=== PATIENT | female | born 1955 ===

== ENCOUNTER 2020-01-27 22:27 | Emergency (ER) | payer OTHER ==
[2020-01-27 22:36] VITALS: TEMP 98.2
--- NOTE | 2020-01-27 22:52 | ED ---
General Adult HPI - General Chief complaint: Recheck/Abnormal Lab/Rx Stated complaint: Back Pain Source: family Mode of arrival: ambulatory Limitations: altered mental status - History of Present Illness Initial comments: Shelby is a pleasant 64-year-old female who presents the ER today with a multitude of complaints. Patient moved to [place] on Tuesday from [place]. She has no medical care here in the state. She has no medical insurance which is delayed her son's ability to set her up with a primary care physician. Son reports that she had her gallbladder removed and a hospital in [place] in April and at that time was told she had high blood pressure and diabetes. She is not on any medications. He states that since moving she's been experiencing some abdominal pain and has not had a bowel movement since Tuesday. She states this is cause some abdominal and back pain. Pain is in her low back. She has no associated urinary retention or incontinence. No pain weakness numbness or tingling in the lower extremities. No difficulty walking. No fevers. On also expresses concern over the patient having memory problems which seemed to be worsening over the past year, and is concerned because she's been told she is diabetic but is not on medications. Son states he needs to get everything straightened up and set up for her. - Related Data Previous Rx's Medication Instructions Recorded Polyethylene Glycol 3350 [Miralax] 17 gm PO DAILY #527 gm 01/28/20 Sennosides-Docusate Sodium 1 tab PO DAILY #28 tablet 01/28/20 [Senokot-S] Allergies Allergy/AdvReac Type Severity Reaction Status Date / Time No Known Allergies Allergy Verified 01/27/20 22:36 Review of Systems ROS Statement: Those systems with pertinent positive or pertinent negative responses have been documented in the HPI. ROS Other: All systems not noted in ROS Statement are negative. Past Medical History Past Medical History: Diabetes Mellitus, Hypertension History of Any Multi-Drug Resistant Organisms: None Reported Past Surgical History: Cholecystectomy Past Psychological History: No Psychological Hx Reported Smoking Status: Never smoker Past Alcohol Use History: Occasional Past Drug Use History: None Reported General Exam - General Exam Comments Initial Comments: Physical Exam GENERAL: Patient is well-developed and well-nourished. Patient is nontoxic and well- hydrated and is in no distress. HENT: Normocephalic, Atraumatic. EYES: PERRL, EOMI PULMONARY: Unlabored respirations. No audible rales rhonchi or wheezing was noted. CARDIOVASCULAR: There is a regular rate and rhythm without any murmurs gallops or rubs. ABDOMEN: Soft and nontender with normal bowel sounds. SKIN: Skin is clear with no lesions or rashes and otherwise unremarkable. : Deferred NEUROLOGIC: Patient is alert and oriented x3. Moving all extremities spontaneously Normal strength bilateral lower extremities Normal 2+ patellar reflexes bilaterally Normal gait MUSCULOSKELETAL: Normal extremities with adequate strength and full range of motion. No lower extremity swelling or edema. No calf tenderness. No tenderness to palpation of back PSYCHIATRIC: Normal psychiatric evaluation. Limitations: altered mental status Course Vital Signs 01/27/20 01/28/20 01/28/20 22:30 01:00 03:32 Temperature 98.2 F Pulse Rate 68 56 L 78 Respiratory 16 17 18 Rate Blood Pressure 147/79 134/66 140/70 O2 Sat by Pulse 98 100 98 Oximetry Medical Decision Making - Medical Decision Making The patient was seen and evaluated history is obtained from the patient and son at bedside 64-year-old female who has not had a bowel movement in 7-8 days presenting with abdominal pain that radiates to her back Physical exam is relatively benign, patient has no signs or symptoms of cauda equina no significant back pain or abnormalities Labs and computed tomography scan were obtained labs are relatively unremarkable despite being told she is diabetic the patient's blood sugar is only in the 120s on no medications Computed tomography scan does reveal significant fecal burden, patient will be discharged home on MiraLAX and stool softeners advised to increase fluids and fiber in her diet Patient to return to ER for any worsening - Lab Data Result diagrams: 01/27/20 23:27 01/27/20 23:27 Lab Results 01/27/20 01/27/20 01/27/20 Range/Units 22:52 23:27 23:27 WBC 6.7 (3.8-10.6) k/uL RBC 4.47 (3.80-5.40) m/uL Hgb 12.9 (11.4-16.0) gm/dL Hct 39.0 (34.0-46.0) % MCV 87.3 (80.0-100.0) fL MCH 29.0 (25.0-35.0) pg MCHC 33.2 (31.0-37.0) g/dL RDW 13.3 (11.5-15.5) % Plt Count 259 (150-450) k/uL Neutrophils % 56 % Lymphocytes % 34 % Monocytes % 5 % Eosinophils % 2 % Basophils % 1 % Neutrophils # 3.8 (1.3-7.7) k/uL Lymphocytes # 2.3 (1.0-4.8) k/uL Monocytes # 0.3 (0-1.0) k/uL Eosinophils # 0.1 (0-0.7) k/uL Basophils # 0.1 (0-0.2) k/uL Sodium (137-145) mmol/L Potassium (3.5-5.1) mmol/L Chloride (98-107) mmol/L Carbon Dioxide (22-30) mmol/L Anion Gap mmol/L BUN (7-17) mg/dL Creatinine (0.52-1.04) mg/dL Est GFR (CKD-EPI)AfAm (>60 ml/min/1.73 sqM) Est GFR (CKD-EPI)NonAf (>60 ml/min/1.73 sqM) Glucose (74-99) mg/dL POC Glucose (mg/dL) 120 H (75-99) mg/dL POC Glu Sagger Preparer ID Aniyah Mims Calcium (8.4-10.2) mg/dL Total Bilirubin (0.2-1.3) mg/dL AST (14-36) U/L ALT (4-34) U/L Alkaline Phosphatase (38-126) U/L Total Protein (6.3-8.2) g/dL Albumin (3.5-5.0) g/dL Amylase (30-110) U/L Lipase (23-300) U/L Urine Color Light Yellow Urine Appearance Clear (Clear) Urine pH 5.0 (5.0-8.0) Ur Specific [place] 1.013 (1.001-1.035) Urine Protein Negative (Negative) Urine Glucose (UA) Negative (Negative) Urine Ketones Negative (Negative) Urine Blood Negative (Negative) Urine Nitrite Negative (Negative) Urine Bilirubin Negative (Negative) Urine Urobilinogen <2.0 (<2.0) mg/dL Ur Leukocyte Esterase Large H (Negative) Urine RBC 1 (0-5) /hpf Urine WBC 2 (0-5) /hpf Ur Squamous Epith Cells 1 (0-4) /hpf Urine Mucus Rare H (None) /hpf 01/27/20 Range/Units 23:27 WBC (3.8-10.6) k/uL RBC (3.80-5.40) m/uL Hgb (11.4-16.0) gm/dL Hct (34.0-46.0) % MCV (80.0-100.0) fL MCH (25.0-35.0) pg MCHC (31.0-37.0) g/dL RDW (11.5-15.5) % Plt Count (150-450) k/uL Neutrophils % % Lymphocytes % % Monocytes % % Eosinophils % % Basophils % % Neutrophils # (1.3-7.7) k/uL Lymphocytes # (1.0-4.8) k/uL Monocytes # (0-1.0) k/uL Eosinophils # (0-0.7) k/uL Basophils # (0-0.2) k/uL Sodium 136 L (137-145) mmol/L Potassium 4.0 (3.5-5.1) mmol/L Chloride 106 (98-107) mmol/L Carbon Dioxide 24 (22-30) mmol/L Anion Gap 6 mmol/L BUN 25 H (7-17) mg/dL Creatinine 0.73 (0.52-1.04) mg/dL Est GFR (CKD-EPI)AfAm >90 (>60 ml/min/1.73 sqM) Est GFR (CKD-EPI)NonAf 87 (>60 ml/min/1.73 sqM) Glucose 122 H (74-99) mg/dL POC Glucose (mg/dL) (75-99) mg/dL POC Glu Sagger Preparer ID Calcium 9.5 (8.4-10.2) mg/dL Total Bilirubin 0.6 (0.2-1.3) mg/dL AST 30 (14-36) U/L ALT 20 (4-34) U/L Alkaline Phosphatase 79 (38-126) U/L Total Protein 6.8 (6.3-8.2) g/dL Albumin 4.1 (3.5-5.0) g/dL Amylase 42 (30-110) U/L Lipase 65 (23-300) U/L Urine Color Urine Appearance (Clear) Urine pH (5.0-8.0) Ur Specific [place] (1.001-1.035) Urine Protein (Negative) Urine Glucose (UA) (Negative) Urine Ketones (Negative) Urine Blood (Negative) Urine Nitrite (Negative) Urine Bilirubin (Negative) Urine Urobilinogen (<2.0) mg/dL Ur Leukocyte Esterase (Negative) Urine RBC (0-5) /hpf Urine WBC (0-5) /hpf Ur Squamous Epith Cells (0-4) /hpf Urine Mucus (None) /hpf Disposition Clinical Impression: Abdominal pain Disposition: HOME SELF-CARE Condition: Stable Instructions (If sedation given, give patient instructions): Constipation (DC) Prescriptions: Polyethylene Glycol 3350 [Miralax] 17 gm PO DAILY #527 gm Sennosides-Docusate Sodium [Senokot-S] 1 tab PO DAILY #28 tablet Is patient prescribed a controlled substance at d/c from ED?: No Referrals: None,Stated [Primary Care Provider] - 1-2 days
[2020-01-27 22:54] LABS: Glucose,Whole Blood 120 mg/dL (75-99)
[2020-01-27] MEDS ORDERED: SODIUM CHLORIDE 0.9% 1,000 ML IV STA (23:15)
[2020-01-27 23:37] LABS: Basophils # (A) 0.1 k/uL (0-0.2); Basophils % (A) 1 %; Eosinophils # (A) 0.1 k/uL (0-0.7); Eosinophils % (A) 2 %; HGB 12.9 gm/dL (11.4-16.0); Lymphocytes # (A) 2.3 k/uL (1.0-4.8); Lymphocytes % (A) 34 %; MCHC 33.2 g/dL (31.0-37.0); MCV 87.3 fL (80.0-100.0); Mean Platelet Volume 7.5; Monocytes # (A) 0.3 k/uL (0-1.0); Monocytes % (A) 5 %; Neutrophils # (A) 3.8 k/uL (1.3-7.7); Neutrophils % (A) 56 %; Platelet Count 259 k/uL (150-450); RBC 4.47 m/uL (3.80-5.40); RDW 13.3 % (11.5-15.5); WBC 6.7 k/uL (3.8-10.6)
[2020-01-27 23:39] LABS: Appearance,Urine Clear (Clear); Bilirubin,Urine Negative (Negative); Blood,Urine Negative (Negative); Color,Urine Light Yellow; Glucose,Urine (UA) Negative (Negative); Ketones,Urine Negative (Negative); Leukocyte Esterase,Urine Large (Negative); Mucus,Urine Rare /hpf; Nitrite,Urine Negative (Negative); Protein,Urine Negative (Negative); RBC,Urine 1 /hpf (0-5); Specific Gravity,Urine 1.013 (1.001-1.035); Squamous Epithelial Cell,Urine 1 /hpf (0-4); Urobilinogen,Urine <2.0 mg/dL (<2.0); WBC,Urine 2 /hpf (0-5)
[2020-01-27 23:48] LABS: ALT 20 U/L (4-34); AST 30 U/L (14-36); African American GFR (CKD) >90 (>60 ml/min/1.73 sqM); Albumin 4.1 g/dL (3.5-5.0); Alkaline Phosphatase 79 U/L (38-126); Amylase 42 U/L (30-110); Anion Gap 6 mmol/L; Blood Urea Nitrogen 25 mg/dL (7-17); Calcium 9.5 mg/dL (8.4-10.2); Carbon Dioxide 24 mmol/L (22-30); Chloride 106 mmol/L (98-107); Glucose 122 mg/dL (74-99); Lipase 65 U/L (23-300); Non-African American GFR(CKD) 87 (>60 ml/min/1.73 sqM); Sodium 136 mmol/L (137-145); Total Bilirubin 0.6 mg/dL (0.2-1.3); Total Protein 6.8 g/dL (6.3-8.2)
--- NOTE | 2020-01-28 00:35 | CT ---
EXAMINATION TYPE: CT abdomen pelvis w con DATE OF EXAM: 01/28/2020 COMPARISON: None HISTORY: abd pain and back pain CT DLP: 900.4 mGycm Automated exposure control for dose reduction was used. CONTRAST: Performed with IV Contrast, patient injected with 100 mL of Isovue 300. Multiple axial sections were obtained from the diaphragm to the floor the pelvis with IV contrast There is minimal subsegmental atelectasis at the lung bases. Heart size is normal. There is no perica rdial effusion. There are clips from cholecystectomy. Spleen is intact. Liver has normal size and con tour. The bile ducts are not dilated. There is some thickening of the anterior wall of the stomach. T here is no evidence of pancreatic mass. Pancreas appears normal. There is no adrenal mass. Kidneys show satisfactory contrast opacification. There is no hydronephrosi s. Ureters are not dilated. Delayed images show normal renal excretion. There is no retroperitoneal a denopathy. Bladder distends smoothly. There is no inguinal hernia. Uterus is anteverted. Lumbar spine is intact. Disc spaces are normal. Facet joints are intact. Bony pelvis is intact. Hip joints appear normal. There is no mesenteric edema. There is no ascites or free air. There is no bowel obstruction. Appendi x is posterior and medial and appears normal. There is small umbilical 1.5 cm hernia that contains fa t. Fecal pattern appears fairly normal. IMPRESSION: Mild wall thickening of the gastric fundus and anterior wall of the stomach. This is of uncertain cli nical significance.
[2020-01-28] MEDS ORDERED: ACET/COD 300 MG/30 MG STARTER PACK 6 TAB BTL PO STA (03:05)
[2020-01-28] MEDS ORDERED: GLYCERIN ADULT SUPPOSITORY 1 EACH RECTAL STA (03:10)
[2020-01-28 03:35] VITALS: BP 140/70; PULSE 78; RESP 18
== END 2020-01-28 03:35 | disposition home or self-care (01) ==
LOC: EC 22:27
DX: R10.9 Unspecified abdominal pain (principal); E11.9 Type 2 diabetes mellitus without complications; R41.82 Altered mental status, unspecified
CPT/HCPCS: 36415; 80053; 82150; 83690; 85025; 81001; 74177; 99284; 96360; 96361 ×3; Q9967

== ENCOUNTER 2020-02-29 18:30 | Emergency (ER) | payer MEDICARE ==
[2020-02-29] MEDS ORDERED: SODIUM CHLORIDE 0.9% 1,000 ML IV STA (19:50)
[2020-02-29] MEDS ORDERED: ONDANSETRON 4 MG/2 ML VIAL IVP STA (19:50)
[2020-02-29] MEDS ORDERED: MORPHINE SULFATE 4 MG/ML SYRINGE IVP STA (19:51)
[2020-02-29 20:49] LABS: Albumin 4.5 g/dL (3.5-5.0); Calcium 10.2 mg/dL (8.4-10.2); Potassium 4.1 mmol/L (3.5-5.1); Total Bilirubin 0.9 mg/dL (0.2-1.3); Total Protein 7.7 g/dL (6.3-8.2)
[2020-02-29 21:02] LABS: Basophils # (A) 0.1 k/uL (0-0.2); Basophils % (A) 1 %; Eosinophils # (A) 0.1 k/uL (0-0.7); Eosinophils % (A) 1 %; HGB 14.6 gm/dL (11.4-16.0); Lymphocytes # (A) 1.2 k/uL (1.0-4.8); Lymphocytes % (A) 11 %; MCHC 33.3 g/dL (31.0-37.0); MCV 87.2 fL (80.0-100.0); Mean Platelet Volume 7.8; Monocytes # (A) 0.5 k/uL (0-1.0); Monocytes % (A) 5 %; Neutrophils % (A) 82 %; Platelet Count 271 k/uL (150-450); RBC 5.05 m/uL (3.80-5.40); RDW 13.1 % (11.5-15.5)
[2020-02-29 21:09] LABS: Appearance,Urine Clear (Clear); Bacteria,Urine Rare /hpf; Bilirubin,Urine Negative (Negative); Blood,Urine Large (Negative); Color,Urine Yellow; Glucose,Urine (UA) Negative (Negative); Hyaline Casts,Urine 4 /lpf (0-2); Ketones,Urine 2+ (Negative); Leukocyte Esterase,Urine Negative (Negative); Mucus,Urine Occasional /hpf; Nitrite,Urine Negative (Negative); Protein,Urine 1+ (Negative); RBC,Urine 130 /hpf (0-5); Specific Gravity,Urine 1.021 (1.001-1.035); Squamous Epithelial Cell,Urine 1 /hpf (0-4); Urobilinogen,Urine <2.0 mg/dL (<2.0); WBC,Urine 2 /hpf (0-5)
--- NOTE | 2020-02-29 21:40 | CT ---
EXAMINATION TYPE: CT abdomen pelvis w con DATE OF EXAM: 02/29/2020 COMPARISON: 01/28/2020 HISTORY: abdominal pain CT DLP: 735.5 mGycm Automated exposure control for dose reduction was used. CONTRAST: Performed with IV Contrast, patient injected with 100 mL of Isovue 300. There is mild subsegmental atelectasis at the lung bases. Heart size is normal. There is no pericardi al effusion. There is no pleural effusion. Stomach is intact. There are clips from cholecystectomy. Liver shows no focal defect. Common bile steve t measures 10 mm. Spleen is intact. Stomach is intact. There is no pancreatic mass. There is no adrenal mass. There is right-sided hydronephrosis. Delayed images show delayed right side pyelogram. Right ureter is dilated. There is right-sided perinephric edema. There is 3 mm calcificat ion in the pelvis posterior aspect of the urinary bladder on the right side is probably a stone in th e distal right ureter. There is no inguinal hernia. There is no free fluid in the pelvis. Uterus is anteverted. Appendix is medial and appears normal. There is no mesenteric edema. There is no ascites or free air. There is no evidence of a bowel obstru ction. There are a few small bowel fluid filled loops in the right lower quadrant that could relate t o mild localized ileus. Lumbar vertebra show normal spacing and alignment. Bony pelvis is intact. Hip joints are intact. IMPRESSION: Right-sided hydronephrosis and hydroureter with perinephric edema. There is evidence of a small stone obstructing the right kidney at the ureteral vesicle junction. This is a change compared to old exam .
[2020-02-29] MEDS ORDERED: HYDROmorphone 0.5 MG/0.5 ML SYRINGE IVP STA (22:03)
[2020-02-29] MEDS ORDERED: KETOROLAC 15 MG/ML 1 ML VIAL IVP STA (22:03)
[2020-02-29 22:14] VITALS: TEMP 98.1
--- NOTE | 2020-02-29 22:45 | ED ---
General Adult HPI - General Chief complaint: Abdominal Pain Stated complaint: abd pain Time Seen by Provider: 02/29/20 19:17 Source: patient, RN notes reviewed Mode of arrival: wheelchair Limitations: no limitations - History of Present Illness Initial comments: 65-year-old female with a past medical history of hypertension, diabetes mellitus presents to the emergency room for a chief complaint of right lower quadrant pain. Patient reports this started this morning. Patient did have some back pain and blood in her urine about a month ago when she was seen in the emergency room. Patient states she has an appointment with the urologist on Tuesday. Patient denies fevers or chills. Denies nausea vomiting diarrhea.Patient has no other complaints at this time including shortness of breath, chest pain, nausea or vomiting, headache, or visual changes. - Related Data Previous Rx's Medication Instructions Recorded Polyethylene Glycol 3350 [Miralax] 17 gm PO DAILY #527 gm 01/28/20 Sennosides-Docusate Sodium 1 tab PO DAILY #28 tablet 01/28/20 [Senokot-S] HYDROcodone/APAP 5-325MG [[place] 1 tab PO Q6HR PRN #10 tab 02/29/20 5-325] Ondansetron [Zofran ODT] 4 mg PO Q8HR PRN #15 tab 02/29/20 Tamsulosin [Flomax] 0.4 mg PO DAILY #14 cap 02/29/20 Allergies Allergy/AdvReac Type Severity Reaction Status Date / Time No Known Allergies Allergy Verified 01/27/20 22:36 Review of Systems ROS Statement: Those systems with pertinent positive or pertinent negative responses have been documented in the HPI. ROS Other: All systems not noted in ROS Statement are negative. Past Medical History Past Medical History: Diabetes Mellitus, Hypertension History of Any Multi-Drug Resistant Organisms: None Reported Past Surgical History: Cholecystectomy Past Psychological History: No Psychological Hx Reported Smoking Status: Never smoker Past Alcohol Use History: Occasional Past Drug Use History: None Reported General Exam Limitations: no limitations General appearance: alert, in no apparent distress Head exam: Present: atraumatic, normocephalic, normal inspection Eye exam: Present: normal appearance, PERRL, EOMI. Absent: scleral icterus, conjunctival injection, periorbital swelling ENT exam: Present: normal exam, mucous membranes moist Neck exam: Present: normal inspection, full ROM. Absent: tenderness, meningismus, lymphadenopathy Respiratory exam: Present: normal lung sounds bilaterally. Absent: respiratory distress, wheezes, rales, rhonchi, stridor Cardiovascular Exam: Present: regular rate, normal rhythm, normal heart sounds. Absent: systolic murmur, diastolic murmur, rubs, gallop, clicks GI/Abdominal exam: Present: soft, tenderness (Mild right lower quadrant tenderness.), normal bowel sounds. Absent: distended, guarding, rebound, rigid Neurological exam: Present: alert Psychiatric exam: Present: normal affect, normal mood Course Vital Signs 02/29/20 02/29/20 19:04 21:58 Temperature 98.2 F 98.1 F Pulse Rate 91 84 Respiratory 16 19 Rate Blood Pressure 180/82 186/83 O2 Sat by Pulse 100 100 Oximetry Medical Decision Making - Medical Decision Making CBC CMP unremarkable. Urinalysis does show 2+ ketones with large blood. 130 red blood cells. Patient was given a liter of normal saline. CT abdomen and pelvis shows right-sided hydronephrosis and hydroureter with perinephric edema. There is evidence of a 3 mm stone obstructing the right kidney at the UVJ. This is a change compared to old exam. Patient was given pain medication and did have improvement in pain. Patient will be treated outpatient for kidney stone. She will follow-up with her urologist with appointment on Tuesday. She will return for any worsening symptoms. - Lab Data Result diagrams: 02/29/20 20:32 02/29/20 20:31 Lab Results 02/29/20 02/29/20 02/29/20 Range/Units 20:30 20:31 20:31 WBC (3.8-10.6) k/uL RBC (3.80-5.40) m/uL Hgb (11.4-16.0) gm/dL Hct (34.0-46.0) % MCV (80.0-100.0) fL MCH (25.0-35.0) pg MCHC (31.0-37.0) g/dL RDW (11.5-15.5) % Plt Count (150-450) k/uL Neutrophils % % Lymphocytes % % Monocytes % % Eosinophils % % Basophils % % Neutrophils # (1.3-7.7) k/uL Lymphocytes # (1.0-4.8) k/uL Monocytes # (0-1.0) k/uL Eosinophils # (0-0.7) k/uL Basophils # (0-0.2) k/uL Sodium 139 (137-145) mmol/L Potassium 4.1 (3.5-5.1) mmol/L Chloride 108 H (98-107) mmol/L Carbon Dioxide 24 (22-30) mmol/L Anion Gap 7 mmol/L BUN 16 (7-17) mg/dL Creatinine 0.89 (0.52-1.04) mg/dL Est GFR (CKD-EPI)AfAm 78 (>60 ml/min/1.73 sqM) Est GFR (CKD-EPI)NonAf 68 (>60 ml/min/1.73 sqM) Glucose 158 H (74-99) mg/dL Plasma Lactic Acid Jered 1.0 (0.7-2.0) mmol/L Calcium 10.2 (8.4-10.2) mg/dL Total Bilirubin 0.9 (0.2-1.3) mg/dL AST 29 (14-36) U/L ALT 16 (4-34) U/L Alkaline Phosphatase 106 (38-126) U/L Total Protein 7.7 (6.3-8.2) g/dL Albumin 4.5 (3.5-5.0) g/dL Amylase 32 (30-110) U/L Lipase 27 (23-300) U/L Urine Color Yellow Urine Appearance Clear (Clear) Urine pH 6.0 (5.0-8.0) Ur Specific [place] 1.021 (1.001-1.035) Urine Protein 1+ H (Negative) Urine Glucose (UA) Negative (Negative) Urine Ketones 2+ H (Negative) Urine Blood Large H (Negative) Urine Nitrite Negative (Negative) Urine Bilirubin Negative (Negative) Urine Urobilinogen <2.0 (<2.0) mg/dL Ur Leukocyte Esterase Negative (Negative) Urine RBC 130 H (0-5) /hpf Urine WBC 2 (0-5) /hpf Ur Squamous Epith Cells 1 (0-4) /hpf Urine Bacteria Rare H (None) /hpf Hyaline Casts 4 H (0-2) /lpf Urine Mucus Occasional H (None) /hpf 09/11/20 Range/Units 20:32 WBC 11.0 H (3.8-10.6) k/uL RBC 5.05 (3.80-5.40) m/uL Hgb 14.6 (11.4-16.0) gm/dL Hct 44.0 (34.0-46.0) % MCV 87.2 (80.0-100.0) fL MCH 29.0 (25.0-35.0) pg MCHC 33.3 (31.0-37.0) g/dL RDW 13.1 (11.5-15.5) % Plt Count 271 (150-450) k/uL Neutrophils % 82 % Lymphocytes % 11 % Monocytes % 5 % Eosinophils % 1 % Basophils % 1 % Neutrophils # 9.0 H (1.3-7.7) k/uL Lymphocytes # 1.2 (1.0-4.8) k/uL Monocytes # 0.5 (0-1.0) k/uL Eosinophils # 0.1 (0-0.7) k/uL Basophils # 0.1 (0-0.2) k/uL Sodium (137-145) mmol/L Potassium (3.5-5.1) mmol/L Chloride (98-107) mmol/L Carbon Dioxide (22-30) mmol/L Anion Gap mmol/L BUN (7-17) mg/dL Creatinine (0.52-1.04) mg/dL Est GFR (CKD-EPI)AfAm (>60 ml/min/1.73 sqM) Est GFR (CKD-EPI)NonAf (>60 ml/min/1.73 sqM) Glucose (74-99) mg/dL Plasma Lactic Acid Jered (0.7-2.0) mmol/L Calcium (8.4-10.2) mg/dL Total Bilirubin (0.2-1.3) mg/dL AST (14-36) U/L ALT (4-34) U/L Alkaline Phosphatase (38-126) U/L Total Protein (6.3-8.2) g/dL Albumin (3.5-5.0) g/dL Amylase (30-110) U/L Lipase (23-300) U/L Urine Color Urine Appearance (Clear) Urine pH (5.0-8.0) Ur Specific [place] (1.001-1.035) Urine Protein (Negative) Urine Glucose (UA) (Negative) Urine Ketones (Negative) Urine Blood (Negative) Urine Nitrite (Negative) Urine Bilirubin (Negative) Urine Urobilinogen (<2.0) mg/dL Ur Leukocyte Esterase (Negative) Urine RBC (0-5) /hpf Urine WBC (0-5) /hpf Ur Squamous Epith Cells (0-4) /hpf Urine Bacteria (None) /hpf Hyaline Casts (0-2) /lpf Urine Mucus (None) /hpf Disposition Clinical Impression: Kidney stone on right side Disposition: HOME SELF-CARE Condition: Good Instructions (If sedation given, give patient instructions): Kidney Stones (ED) Additional Instructions: Please take Motrin for pain. If pain is severe take [place]. Take Zofran as needed for nausea. Take Flomax to help open up the ureter as directed. Follow- up with urology. Return to the emergency room for any worsening symptoms. Prescriptions: Tamsulosin [Flomax] 0.4 mg PO DAILY #14 cap HYDROcodone/APAP 5-325MG [[place] 5-325] 1 tab PO Q6HR PRN #10 tab PRN Reason: Pain Ondansetron [Zofran ODT] 4 mg PO Q8HR PRN #15 tab PRN Reason: Nausea Is patient prescribed a controlled substance at d/c from ED?: No Referrals: Erin Johnson MD [REFERRING] - 1-2 days Time of Disposition: 22:48
[2020-02-29] MEDS ORDERED: ACET/COD 300 MG/30 MG STARTER PACK 6 TAB BTL PO STA (22:50)
--- NOTE | 2020-02-29 23:05 | XR ---
EXAMINATION TYPE: XR KUB DATE OF EXAM: 02/29/2020 COMPARISON: NONE HISTORY: Kidney stone TECHNIQUE: 2 views supine FINDINGS: There is contrast in both upper collecting systems. There is some dilation of the right kary al calyces and pelvis and ureter right ureter. Left upper collecting system appears normal. There is no sign of intestinal obstruction or pneumoperitoneum. Fecal pattern is normal. There are cl ips from cholecystectomy. Bladder distends smoothly. IMPRESSION: Mild right-sided hydronephrosis and hydroureter consistent with obstruction at the ureter ovesical junction.
[2020-02-29 23:34] VITALS: BP 142/75; PULSE 76; RESP 18
== END 2020-02-29 23:34 | disposition home or self-care (01) ==
LOC: EC 18:30
DX: N13.2 Hydronephrosis with renal and ureteral calculous obstruction (principal); Z90.49 Acquired absence of other specified parts of digestive tract
CPT/HCPCS: 36415; 80053; 82150; 83605; 83690; 85025; 81001; 74018; 74177; 99284; 96374; 96375 ×3; 96361; J2270; J2405; J1885; J1170; Q9967

== ENCOUNTER 2020-03-13 11:59 | Day surgery (SDC) | payer MEDICARE ==
[2020-03-12 14:22] VITALS: BMI 27.2
--- NOTE | 2020-03-13 11:38 | P.HPIHPCON ---
History of Present Illness H&P Date: 03/13/20 Chief Complaint: right flak pain Mr Rendon is a 65 yo female with hx of 3mm right sided UVJ stone, has failed medical expulsive therapy. She is still complainig of right sided flank pain. I discussed with her the option of doing right sided ureteroscopy. Discussed risk of bleeding, infection, injury to the ureter. Also discussed risk from anesthesia. She understood all risks and agreed to proceed with right sided ureteroscopy with holmium laser, stone basketting and stent placement Consent for Procedure: I have explained the operation/procedure to the patient, including the risks, benefits, side effects, alternative therapies (including not receiving the proposed treatment or service), the likelihood of the patient achieving his/her goals, and potential recuperation problems for the procedure/sedation/analgesia, as well as any blood products, if indicated. I also explained to the patient the risks, benefits and side effects of the alternatives, as well as the risks related to not receiving the proposed procedure, care, treatment, or services. Past Medical History Past Medical History: Hypertension Additional Past Medical History / Comment(s): kidney stones History of Any Multi-Drug Resistant Organisms: None Reported Past Surgical History: Cholecystectomy, Orthopedic Surgery Additional Past Surgical History / Comment(s): rt shoulder surgery Past Anesthesia/Blood Transfusion Reactions: No Reported Reaction Smoking Status: Never smoker - Past Family History Mother Family Medical History: Unable to Obtain Medications and Allergies Home Medications Medication Instructions Recorded Confirmed Type HYDROcodone/APAP 5-325MG [[place] 1 tab PO Q6HR PRN #10 tab 02/29/20 03/12/20 Rx 5-325] Tamsulosin [Flomax] 0.4 mg PO DAILY #14 cap 02/29/20 03/12/20 Rx Allergies Allergy/AdvReac Type Severity Reaction Status Date / Time No Known Allergies Allergy Verified 03/12/20 14:13 Surgical - Exam - General well developed, well nourished, no distress, moderate pain - Eyes PERRL, normal ocular movement - Respiratory normal expansion, normal respiratory effort - Abdomen Abdomen: soft, non tender - Psychiatric oriented to time, oriented to person, oriented to place Assessment and Plan Assessment: 65 yo female with 3 mm right sided ureteral stone -Or for right sided ureteroscopy, holmium laser lithotripsy and stone basketting
--- NOTE | 2020-03-13 12:42 | XR ---
EXAMINATION TYPE: XR KUB DATE OF EXAM: 03/13/2020 12:18 PM CLINICAL HISTORY: Kidney stones TECHNIQUE: Supine images of the abdomen and pelvis were obtained COMPARISON: CT abdomen pelvis 02/29/2020.. FINDINGS: No discrete calcification seen. Right upper quadrant displaced cholecystectomy clips Scatte red gas is seen in non-distended small bowel loops. Gas and fecal material is seen in non-distended c olon. There is no visceromegaly. No large pneumoperitoneum. The lung bases are clear. The osseous str uctures are intact. IMPRESSION: 1. No discrete calcification seen. 2. Nonspecific bowel gas pattern.
[2020-03-13 13:29] VITALS: RESP 16
[2020-03-13] MEDS ORDERED: ONDANSETRON 4 MG/2 ML VIAL ONE (13:32)
[2020-03-13 13:46] LABS: Glucose,Whole Blood 118 mg/dL (75-99)
[2020-03-13] MEDS ORDERED: LACTATED RINGERS 1,000 ML IV ONE (13:46)
[2020-03-13] MEDS ORDERED: LIDOCAINE 1% (10MG/ML) FOR IV START INTRADERMA ONE (13:47)
[2020-03-13] MEDS ORDERED: DEXAMETHASONE SOD PHOSPHATE 10 MG/ML 1 ML VIAL IV ONE (13:47)
[2020-03-13] MEDS ORDERED: PROPOFOL 10 MG/ML 20 ML VIAL IV ONE (14:59)
[2020-03-13] MEDS ORDERED: fentaNYL (PF) 50 MCG/ML 2 ML AMP ONE (14:59)
[2020-03-13] MEDS ORDERED: LIDOCAINE 1% INJ 10MG/ML (20 ML MDV) ONE (14:59)
[2020-03-13] MEDS ORDERED: SUCCINYLCHOLINE CHLORIDE 100 MG/5 ML SYR IV ONE (14:59)
[2020-03-13] MEDS ORDERED: MIDAZOLAM 2 MG/2 ML VIAL ONE (14:59)
[2020-03-13] MEDS ORDERED: IOPAMIDOL-370 50ML BTL MISCELLANE ONE ×3 (15:13→15:28)
--- NOTE | 2020-03-13 16:07 | P.OP ---
Date of Procedure: 03/13/20 Preoperative Diagnosis: Right ureteral calculi Postoperative Diagnosis: Right flank pain/bladder tumor Procedure(s) Performed: Cystoscopy, right ureteroscopy, ureteral balloon dilation, retrograde pyelogram, bladder biopsy and fulguration Implants: None Anesthesia: KRISTOPHER Surgeon: Aleksander Guzman Estimated Blood Loss (ml): 5 Pathology: other (Bladder tumor) Condition: stable Disposition: PACU Indications for Procedure: Mr Rendon is a 65 yo female with hx of 3mm right sided UVJ stone, has failed medical expulsive therapy. She is still complainig of right sided flank pain. I discussed with her the option of doing right sided ureteroscopy. Discussed risk of bleeding, infection, injury to the ureter. Also discussed risk from anesthesia. 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 She was prepped and draped in sterile fashion and placed in a dorsal lithotomy position. 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 Using the biopsy forceps the lesion was biopsied, the lesion measured approximately 3 cm. The area of the biopsy was thoroughly fulgurated using the Bugbee's. At this time attention was carried to the right ureteral orifice which was intubated with a sensor wire. Of note she had a narrowing at the UVJ, thus decision was made to proceed with balloon dilation. A ureteral balloon dilator was passed over the wire, and the UVJ was dilated under fluoroscopy. At this time the balloon dilator was removed with the wire in place. Next a semirigid ureteroscope was inserted per urethra and advanced up the right ureteral orifice, all the way up to the UPJ, no evidence of stone was seen along the course of the ureter, pullback ureteroscopy demonstrated no stones or injury to the ureter. At this time a flexible ureteroscope was passed over the wire and into the kidney. Renoscopy was performed showed no abnormality within the kidney or kidney stones. Retrograde pyelogram was performed to ensure all calyces were evaluated. At this time pullback ureteroscopy was performed showed no ureteral injury or ureteral stone. The bladder was emptied at the end of the case. The patient tolerated the procedure well and was taken to PACU in stable condition
[2020-03-13 16:10] VITALS: TEMP 96.8
[2020-03-13] MEDS ORDERED: SODIUM CHLORIDE 0.9% 1,000 ML IV ONE ×3 (16:12)
[2020-03-13 16:57] LABS: Glucose,Whole Blood 121 mg/dL (75-99)
[2020-03-13] MEDS ORDERED: KETOROLAC 15 MG/ML 1 ML VIAL IVP ONE (17:05)
[2020-03-13] MEDS ORDERED: KETOROLAC 15 MG/ML 1 ML VIAL ONE (17:09)
--- NOTE | 2020-03-13 17:12 | FL ---
EXAMINATION TYPE: FL urography retrograde DATE OF EXAM: 03/13/2020 COMPARISON: NONE HISTORY: Flank pain. Cystoscopy. Bladder biopsy. TECHNIQUE: Fluoroscopy. FINDINGS: Fluoroscopic guidance was provided during procedure for performing physician. A total of 26 seconds of fluoroscopic time was utilized during the procedure and 1 spot images was acquired. Ple ase see operative report for additional details. IMPRESSION: As Above.
[2020-03-13 17:34] VITALS: BP 184/74; PULSE 71
== END 2020-03-13 17:39 ==
LOC: OR 11:59
PROVIDERS: ATTEND Urology
DX: Q62.12 Congenital occlusion of ureterovesical orifice (principal); N32.9 Bladder disorder, unspecified; I10 Essential (primary) hypertension; Z87.442 Personal history of urinary calculi; Z90.49 Acquired absence of other specified parts of digestive tract; Z98.890 Other specified postprocedural states; Z79.899 Other long term (current) drug therapy; E11.9 Type 2 diabetes mellitus without complications; K21.9 Gastro-esophageal reflux disease without esophagitis
CPT/HCPCS: 52344; 52214; 88305; 88342; 88341; 74420; 74018; C1769; J2250; J1100; J0690; J2405; J2001; J3010; J1885; J0330; J2704; Q9967

== ENCOUNTER → 2020-04-18 | Outpatient (CLI) | payer MEDICARE ==
--- NOTE | 2020-04-18 16:57 | CT ---
EXAMINATION TYPE: CT brain wo con DATE OF EXAM: 04/18/2020 HISTORY: Memory loss and shuffling gait.. CT DLP: 1035.5 mGycm. Automated Exposure Control for Dose Reduction was Utilized. TECHNIQUE: CT scan of the head is performed without contrast. COMPARISON: None FINDINGS: There is no acute intracranial hemorrhage, midline shift, or mass effect identified. There is abnorma lly hypodense appearance of the white matter diffusely, primarily of the subcortical and periventricu lar white matter. There is preserved clark-white differentiation. The ventricles, sulci, and cisterns are normal in size and configuration. No extra-axial fluid collection. Bones and extracranial soft tissues are intact. The globes are gross ly symmetric. There is foamy mucosal thickening of the left maxillary sinus with hyperostosis, sugges tive of chronic sinusitis change. Mastoid air cells are clear. IMPRESSION: 1. No acute intracranial hemorrhage, midline shift, or mass effect. 2. Diffusely abnormal hypodense appearance of the white matter. Preserved clark-white differentiation. Recommend MRI of the brain for further characterization of white matter disease. 3. Chronic left maxillary sinusitis.
== END | disposition home or self-care (01) ==
LOC: RADCTMAIN 16:10
PROVIDERS: ATTEND Family Medicine
DX: R93.0 Abnormal findings on diagnostic imaging of skull and head, not elsewhere classified (principal)
CPT/HCPCS: 70450

== ENCOUNTER 2020-04-24 20:49 | Inpatient (IN) | payer MEDICARE ==
[2020-04-24] MEDS: SODIUM CHLORIDE 0.9% 1,000 ML IV SCH (21:00)
[2020-04-24] MEDS ORDERED: SODIUM CHLORIDE 0.9% 1,000 ML IV ONE (21:22)
[2020-04-24] MEDS ORDERED: ONDANSETRON 4 MG/2 ML VIAL IVP STA (21:23)
[2020-04-24 21:26] LABS: Glucose,Whole Blood 128 mg/dL (75-99)
--- NOTE | 2020-04-24 21:26 | ED ---
General Adult HPI - General Chief complaint: Back Pain/Injury Stated complaint: Headache,backpain Time Seen by Provider: 04/24/20 20:55 Source: patient Mode of arrival: wheelchair Limitations: no limitations - History of Present Illness Initial comments: The patient is a 65-year-old female who presents emergency Department accompanied by her [id number] with report that the patient has been more fatigued since yesterday. The patient does not speak [place] as a first language and therefore her [id number] translates. She states that she has had issues with chronic back pain over the past several months. She is also had issues with a resting tremor and memory loss. They are currently working up the diagnosis of Parkinson's versus MS. The patient was brought up to the emergency department today for an x-ray the patient was complaining of worsening pain tonight and therefore her family member gave her a Tylenol 3. They state that s he has had increased changes in her mentation and responsiveness. No fevers or chills. Patient complains of a headache. No vision changes. No neck stiffness. No recent medication changes. She is supposed to be following up with a neurologist however hasn't yet at this point. The patient denies any bowel or bladder incontinence. The remainder of the HPI is limited because of the patient's language barrier - Related Data Home Medications Medication Instructions Recorded Confirmed Acetaminophen-Codeine 300-30mg 1 - 2 tab PO Q4-6H PRN 04/24/20 04/24/20 [Tylenol w/codeine #3] Aspirin EC [Ecotrin] 325 mg PO DAILY 04/24/20 04/24/20 Donepezil [Aricept] 10 mg PO HS 04/24/20 04/24/20 Previous Rx's Medication Instructions Recorded Atorvastatin [Lipitor] 10 mg PO HS #30 tab 04/29/20 Allergies Allergy/AdvReac Type Severity Reaction Status Date / Time No Known Allergies Allergy Verified 04/24/20 21:55 Review of Systems ROS Statement: Those systems with pertinent positive or pertinent negative responses have been documented in the HPI. ROS Other: All systems not noted in ROS Statement are negative. Past Medical History Past Medical History: Hypertension Additional Past Medical History / Comment(s): kidney stones History of Any Multi-Drug Resistant Organisms: None Reported Past Surgical History: Cholecystectomy, Orthopedic Surgery Additional Past Surgical History / Comment(s): rt shoulder surgery Past Anesthesia/Blood Transfusion Reactions: No Reported Reaction Past Psychological History: No Psychological Hx Reported Smoking Status: Never smoker Past Alcohol Use History: None Reported Past Drug Use History: None Reported - Past Family History Mother Family Medical History: Unable to Obtain Father History Unknown: Yes Additional Family Medical History / Comment(s): Father as a younger man but pt does not recall cause. General Exam Limitations: language barrier, altered mental status General appearance: lethargic, in distress (vomiting) Head exam: Present: atraumatic, normocephalic, normal inspection Eye exam: Present: PERRL, EOMI, conjunctival injection. Absent: scleral icterus, periorbital swelling ENT exam: Present: normal exam, mucous membranes moist Neck exam: Present: normal inspection. Absent: tenderness, meningismus, lymphadenopathy Respiratory exam: Present: normal lung sounds bilaterally. Absent: respiratory distress, wheezes, rales, rhonchi, stridor Cardiovascular Exam: Present: regular rate, normal rhythm, normal heart sounds. Absent: systolic murmur, diastolic murmur, rubs, gallop, clicks GI/Abdominal exam: Present: soft, normal bowel sounds. Absent: distended, tenderness, guarding, rebound, rigid Extremities exam: Present: normal inspection, full ROM, normal capillary refill. Absent: tenderness, pedal edema, joint swelling, calf tenderness Back exam: Present: paraspinal tenderness Neurological exam: Present: altered, other (oriented x1. tremor right upper extremity. ) Skin exam: Present: warm, dry, intact, normal color. Absent: rash Course Vital Signs 04/24/20 04/24/20 04/24/20 20:56 21:11 21:15 Temperature 97 F L Pulse Rate 64 56 L 59 L Respiratory 16 12 18 Rate Blood Pressure 142/67 193/82 O2 Sat by Pulse 99 100 Oximetry 04/24/20 04/24/20 04/24/20 21:30 21:52 22:00 Temperature Pulse Rate 57 L 54 L Respiratory 15 18 Rate Blood Pressure 172/72 159/71 159/71 O2 Sat by Pulse 100 100 Oximetry 04/24/20 04/24/20 04/25/20 22:30 23:00 00:05 Temperature 97.3 F L Pulse Rate 57 L 63 Respiratory 18 17 Rate Blood Pressure 156/60 147/100 159/72 O2 Sat by Pulse 97 98 Oximetry 04/25/20 04/25/20 04/25/20 01:00 02:00 03:00 Temperature Pulse Rate 58 L 62 69 Respiratory 17 18 18 Rate Blood Pressure 127/55 132/64 139/93 O2 Sat by Pulse 98 97 97 Oximetry 04/25/20 04/25/20 04/25/20 04:00 05:00 06:00 Temperature 97.7 F Pulse Rate 61 59 L 57 L Respiratory 18 18 17 Rate Blood Pressure 133/56 127/65 129/70 O2 Sat by Pulse 98 97 97 Oximetry EKG Findings - EKG Comments: EKG Findings:: EKG demonstrates a sinus bradycardia with a rate of 53. TN interval 184. QRS 102. QTC of 444. No acute ST segment elevations or depressions concerning for ischemic changes. No signs of high degree block Medical Decision Making - Medical Decision Making Upon arrival patient is placed in the trauma bay 1. A thorough history and physical exam was performed per patient does have an episode of emesis upon arrival. Peripheral IV is established. Laboratory studies were conducted. Patient is sent for multiple CT studies. The results are discussed with the patient and [id number] at bedside. [id number]-ido is concerned about taking the patient home with her altered mentation and inability to ambulate. I did discuss the case with Dr. Andrea. He does agree to admit the patient. I will place neurology on consult. Bridging orders are placed and the patient is awaiting a bed - Lab Data Result diagrams: 04/29/20 04:50 04/29/20 04:50 Lab Results 04/24/20 04/24/20 04/24/20 Range/Units 21:24 21:41 21:41 WBC 4.6 (3.8-10.6) k/uL RBC 4.59 (3.80-5.40) m/uL Hgb 13.6 (11.4-16.0) gm/dL Hct 40.4 (34.0-46.0) % MCV 88.1 (80.0-100.0) fL MCH 29.6 (25.0-35.0) pg MCHC 33.6 (31.0-37.0) g/dL RDW 13.1 (11.5-15.5) % Plt Count 189 (150-450) k/uL Neutrophils % 62 % Lymphocytes % 31 % Monocytes % 4 % Eosinophils % 0 % Basophils % 1 % Neutrophils # 2.9 (1.3-7.7) k/uL Lymphocytes # 1.4 (1.0-4.8) k/uL Monocytes # 0.2 (0-1.0) k/uL Eosinophils # 0.0 (0-0.7) k/uL Basophils # 0.0 (0-0.2) k/uL ESR 41 H (0-20) mm/hr PT 10.1 (9.0-12.0) sec INR 1.0 (<1.2) APTT 24.2 (22.0-30.0) sec Sample Site ABG pH (7.35-7.45) ABG pCO2 (35-45) mmHg ABG pO2 (83-108) mmHg ABG HCO3 (21-25) mmol/L ABG Total CO2 (19-24) mmol/L ABG O2 Saturation (94-97) % ABG Base Excess mmol/L Alexey Test FiO2 % Sodium (137-145) mmol/L Potassium (3.5-5.1) mmol/L Chloride (98-107) mmol/L Carbon Dioxide (22-30) mmol/L Anion Gap mmol/L BUN (7-17) mg/dL Creatinine (0.52-1.04) mg/dL Est GFR (CKD-EPI)AfAm (>60 ml/min/1.73 sqM) Est GFR (CKD-EPI)NonAf (>60 ml/min/1.73 sqM) Glucose (74-99) mg/dL POC Glucose (mg/dL) 128 H (75-99) mg/dL POC Glu Watch Assembly Inspector ID Violeta Zuniga Estimated Ave Glu mg/dL Hemoglobin A1c (4.0-6.0) % Calcium (8.4-10.2) mg/dL Total Bilirubin (0.2-1.3) mg/dL AST (14-36) U/L ALT (4-34) U/L Alkaline Phosphatase (38-126) U/L Ammonia (<30) umol/L Creatine Kinase (30-135) U/L Troponin I (0.000-0.034) ng/mL Total Protein (6.3-8.2) g/dL Albumin (3.5-5.0) g/dL Triglycerides (0.0-149.0) mg/dL Cholesterol (0-200) mg/dL LDL Cholesterol, Calc (0.0-131.0) mg/dL VLDL Cholesterol, Calc (5.00-40.00) mg/dL HDL Cholesterol (40.0-60.0) mg/dL Cholesterol/HDL Ratio Vitamin B12 (200.0-944.0) pg/mL RBC Folate (280 - 791) ng/mL TSH (0.350-5.500) uIU/mL PTH Intact (14.0-72.0) pg/mL Urine Color Urine Appearance (Clear) Urine pH (5.0-8.0) Ur Specific [place] (1.001-1.035) Urine Protein (Negative) Urine Glucose (UA) (Negative) Urine Ketones (Negative) Urine Blood (Negative) Urine Nitrite (Negative) Urine Bilirubin (Negative) Urine Urobilinogen (<2.0) mg/dL Ur Leukocyte Esterase (Negative) Urine RBC (0-5) /hpf Urine WBC (0-5) /hpf Ur Squamous Epith Cells (0-4) /hpf Hyaline Casts (0-2) /lpf Urine Mucus (None) /hpf Salicylates mg/dL Urine Opiates Screen (NotDetected) Ur Oxycodone Screen (NotDetected) Urine Methadone Screen (NotDetected) Ur Propoxyphene Screen (NotDetected) Acetaminophen ug/mL Ur Barbiturates Screen (NotDetected) U Tricyclic Antidepress (NotDetected) Ur Phencyclidine Scrn (NotDetected) Ur Amphetamines Screen (NotDetected) U Methamphetamines Scrn (NotDetected) U Benzodiazepines Scrn (NotDetected) Urine Cocaine Screen (NotDetected) U Marijuana (THC) Screen (NotDetected) Serum Alcohol mg/dL HIV-1 Antibody (Non-Reactive) HIV Ag/Ab Interpret HIV p24 Antibody (Non-Reactive) HIV-2 Antibody (Non-Reactive) HIV P24 Antigen (Non-Reactive) HTLV I/II Ab (EIA) (Negative) MTHFR Genotype MTHFR Interpretation 04/24/20 04/24/20 04/24/20 Range/Units 21:41 21:41 21:46 WBC (3.8-10.6) k/uL RBC (3.80-5.40) m/uL Hgb (11.4-16.0) gm/dL Hct (34.0-46.0) % MCV (80.0-100.0) fL MCH (25.0-35.0) pg MCHC (31.0-37.0) g/dL RDW (11.5-15.5) % Plt Count (150-450) k/uL Neutrophils % % Lymphocytes % % Monocytes % % Eosinophils % % Basophils % % Neutrophils # (1.3-7.7) k/uL Lymphocytes # (1.0-4.8) k/uL Monocytes # (0-1.0) k/uL Eosinophils # (0-0.7) k/uL Basophils # (0-0.2) k/uL ESR (0-20) mm/hr PT (9.0-12.0) sec INR (<1.2) APTT (22.0-30.0) sec Sample Site ABG pH (7.35-7.45) ABG pCO2 (35-45) mmHg ABG pO2 (83-108) mmHg ABG HCO3 (21-25) mmol/L ABG Total CO2 (19-24) mmol/L ABG O2 Saturation (94-97) % ABG Base Excess mmol/L Alexey Test FiO2 % Sodium 139 (137-145) mmol/L Potassium 3.6 (3.5-5.1) mmol/L Chloride 106 (98-107) mmol/L Carbon Dioxide 24 (22-30) mmol/L Anion Gap 9 mmol/L BUN 17 (7-17) mg/dL Creatinine 0.72 (0.52-1.04) mg/dL Est GFR (CKD-EPI)AfAm >90 (>60 ml/min/1.73 sqM) Est GFR (CKD-EPI)NonAf 88 (>60 ml/min/1.73 sqM) Glucose 139 H (74-99) mg/dL POC Glucose (mg/dL) (75-99) mg/dL POC Glu Watch Assembly Inspector ID Estimated Ave Glu mg/dL Hemoglobin A1c (4.0-6.0) % Calcium 9.5 (8.4-10.2) mg/dL Total Bilirubin 0.5 (0.2-1.3) mg/dL AST 27 (14-36) U/L ALT 14 (4-34) U/L Alkaline Phosphatase 99 (38-126) U/L Ammonia (<30) umol/L Creatine Kinase 134 (30-135) U/L Troponin I <0.012 (0.000-0.034) ng/mL Total Protein 7.5 (6.3-8.2) g/dL Albumin 4.3 (3.5-5.0) g/dL Triglycerides (0.0-149.0) mg/dL Cholesterol (0-200) mg/dL LDL Cholesterol, Calc (0.0-131.0) mg/dL VLDL Cholesterol, Calc (5.00-40.00) mg/dL HDL Cholesterol (40.0-60.0) mg/dL Cholesterol/HDL Ratio Vitamin B12 (200.0-944.0) pg/mL RBC Folate (280 - 791) ng/mL TSH (0.350-5.500) uIU/mL PTH Intact (14.0-72.0) pg/mL Urine Color Yellow Urine Appearance Clear (Clear) Urine pH 5.0 (5.0-8.0) Ur Specific [place] 1.030 (1.001-1.035) Urine Protein Trace H (Negative) Urine Glucose (UA) Negative (Negative) Urine Ketones 1+ H (Negative) Urine Blood Negative (Negative) Urine Nitrite Negative (Negative) Urine Bilirubin Negative (Negative) Urine Urobilinogen 2.0 (<2.0) mg/dL Ur Leukocyte Esterase Small H (Negative) Urine RBC 1 (0-5) /hpf Urine WBC 3 (0-5) /hpf Ur Squamous Epith Cells 2 (0-4) /hpf Hyaline Casts 6 H (0-2) /lpf Urine Mucus Many H (None) /hpf Salicylates 6.0 mg/dL Urine Opiates Screen Detected H (NotDetected) Ur Oxycodone Screen Not Detected (NotDetected) Urine Methadone Screen Not Detected (NotDetected) Ur Propoxyphene Screen Not Detected (NotDetected) Acetaminophen <10.0 ug/mL Ur Barbiturates Screen Not Detected (NotDetected) U Tricyclic Antidepress Not Detected (NotDetected) Ur Phencyclidine Scrn Not Detected (NotDetected) Ur Amphetamines Screen Not Detected (NotDetected) U Methamphetamines Scrn Not Detected (NotDetected) U Benzodiazepines Scrn Not Detected (NotDetected) Urine Cocaine Screen Not Detected (NotDetected) U Marijuana (THC) Screen Not Detected (NotDetected) Serum Alcohol <10 mg/dL HIV-1 Antibody (Non-Reactive) HIV Ag/Ab Interpret HIV p24 Antibody (Non-Reactive) HIV-2 Antibody (Non-Reactive) HIV P24 Antigen (Non-Reactive) HTLV I/II Ab (EIA) (Negative) MTHFR Genotype MTHFR Interpretation 04/24/20 04/25/20 04/25/20 Range/Units 21:46 08:11 08:11 WBC 3.3 L (3.8-10.6) k/uL RBC 4.23 (3.80-5.40) m/uL Hgb 12.8 (11.4-16.0) gm/dL Hct 37.4 (34.0-46.0) % MCV 88.3 (80.0-100.0) fL MCH 30.1 (25.0-35.0) pg MCHC 34.1 (31.0-37.0) g/dL RDW 13.3 (11.5-15.5) % Plt Count 185 (150-450) k/uL Neutrophils % 48 % Lymphocytes % 43 % Monocytes % 5 % Eosinophils % 1 % Basophils % 1 % Neutrophils # 1.6 (1.3-7.7) k/uL Lymphocytes # 1.4 (1.0-4.8) k/uL Monocytes # 0.2 (0-1.0) k/uL Eosinophils # 0.1 (0-0.7) k/uL Basophils # 0.0 (0-0.2) k/uL ESR (0-20) mm/hr PT (9.0-12.0) sec INR (<1.2) APTT (22.0-30.0) sec Sample Site ABG pH (7.35-7.45) ABG pCO2 (35-45) mmHg ABG pO2 (83-108) mmHg ABG HCO3 (21-25) mmol/L ABG Total CO2 (19-24) mmol/L ABG O2 Saturation (94-97) % ABG Base Excess mmol/L Alexey Test FiO2 % Sodium 139 (137-145) mmol/L Potassium 3.8 (3.5-5.1) mmol/L Chloride 111 H (98-107) mmol/L Carbon Dioxide 22 (22-30) mmol/L Anion Gap 6 mmol/L BUN 14 (7-17) mg/dL Creatinine 0.60 (0.52-1.04) mg/dL Est GFR (CKD-EPI)AfAm >90 (>60 ml/min/1.73 sqM) Est GFR (CKD-EPI)NonAf >90 (>60 ml/min/1.73 sqM) Glucose 94 (74-99) mg/dL POC Glucose (mg/dL) (75-99) mg/dL POC Glu Watch Assembly Inspector ID Estimated Ave Glu mg/dL Hemoglobin A1c (4.0-6.0) % Calcium 8.7 (8.4-10.2) mg/dL Total Bilirubin (0.2-1.3) mg/dL AST (14-36) U/L ALT (4-34) U/L Alkaline Phosphatase (38-126) U/L Ammonia <9 (<30) umol/L Creatine Kinase (30-135) U/L Troponin I (0.000-0.034) ng/mL Total Protein (6.3-8.2) g/dL Albumin (3.5-5.0) g/dL Triglycerides (0.0-149.0) mg/dL Cholesterol (0-200) mg/dL LDL Cholesterol, Calc (0.0-131.0) mg/dL VLDL Cholesterol, Calc (5.00-40.00) mg/dL HDL Cholesterol (40.0-60.0) mg/dL Cholesterol/HDL Ratio Vitamin B12 (200.0-944.0) pg/mL RBC Folate (280 - 791) ng/mL TSH (0.350-5.500) uIU/mL PTH Intact (14.0-72.0) pg/mL Urine Color Urine Appearance (Clear) Urine pH (5.0-8.0) Ur Specific [place] (1.001-1.035) Urine Protein (Negative) Urine Glucose (UA) (Negative) Urine Ketones (Negative) Urine Blood (Negative) Urine Nitrite (Negative) Urine Bilirubin (Negative) Urine Urobilinogen (<2.0) mg/dL Ur Leukocyte Esterase (Negative) Urine RBC (0-5) /hpf Urine WBC (0-5) /hpf Ur Squamous Epith Cells (0-4) /hpf Hyaline Casts (0-2) /lpf Urine Mucus (None) /hpf Salicylates mg/dL Urine Opiates Screen (NotDetected) Ur Oxycodone Screen (NotDetected) Urine Methadone Screen (NotDetected) Ur Propoxyphene Screen (NotDetected) Acetaminophen ug/mL Ur Barbiturates Screen (NotDetected) U Tricyclic Antidepress (NotDetected) Ur Phencyclidine Scrn (NotDetected) Ur Amphetamines Screen (NotDetected) U Methamphetamines Scrn (NotDetected) U Benzodiazepines Scrn (NotDetected) Urine Cocaine Screen (NotDetected) U Marijuana (THC) Screen (NotDetected) Serum Alcohol mg/dL HIV-1 Antibody (Non-Reactive) HIV Ag/Ab Interpret HIV p24 Antibody (Non-Reactive) HIV-2 Antibody (Non-Reactive) HIV P24 Antigen (Non-Reactive) HTLV I/II Ab (EIA) (Negative) MTHFR Genotype MTHFR Interpretation 04/25/20 04/25/20 04/25/20 Range/Units 10:23 10:23 10:23 WBC (3.8-10.6) k/uL RBC (3.80-5.40) m/uL Hgb (11.4-16.0) gm/dL Hct (34.0-46.0) % MCV (80.0-100.0) fL MCH (25.0-35.0) pg MCHC (31.0-37.0) g/dL RDW (11.5-15.5) % Plt Count (150-450) k/uL Neutrophils % % Lymphocytes % % Monocytes % % Eosinophils % % Basophils % % Neutrophils # (1.3-7.7) k/uL Lymphocytes # (1.0-4.8) k/uL Monocytes # (0-1.0) k/uL Eosinophils # (0-0.7) k/uL Basophils # (0-0.2) k/uL ESR (0-20) mm/hr PT (9.0-12.0) sec INR (<1.2) APTT (22.0-30.0) sec Sample Site ABG pH (7.35-7.45) ABG pCO2 (35-45) mmHg ABG pO2 (83-108) mmHg ABG HCO3 (21-25) mmol/L ABG Total CO2 (19-24) mmol/L ABG O2 Saturation (94-97) % ABG Base Excess mmol/L Alexey Test FiO2 % Sodium (137-145) mmol/L Potassium (3.5-5.1) mmol/L Chloride (98-107) mmol/L Carbon Dioxide (22-30) mmol/L Anion Gap mmol/L BUN (7-17) mg/dL Creatinine (0.52-1.04) mg/dL Est GFR (CKD-EPI)AfAm (>60 ml/min/1.73 sqM) Est GFR (CKD-EPI)NonAf (>60 ml/min/1.73 sqM) Glucose (74-99) mg/dL POC Glucose (mg/dL) (75-99) mg/dL POC Glu Watch Assembly Inspector ID Estimated Ave Glu mg/dL Hemoglobin A1c (4.0-6.0) % Calcium (8.4-10.2) mg/dL Total Bilirubin (0.2-1.3) mg/dL AST (14-36) U/L ALT (4-34) U/L Alkaline Phosphatase (38-126) U/L Ammonia (<30) umol/L Creatine Kinase (30-135) U/L Troponin I (0.000-0.034) ng/mL Total Protein (6.3-8.2) g/dL Albumin (3.5-5.0) g/dL Triglycerides 150.0 H (0.0-149.0) mg/dL Cholesterol 217 H (0-200) mg/dL LDL Cholesterol, Calc 153.0 H (0.0-131.0) mg/dL VLDL Cholesterol, Calc 30.00 (5.00-40.00) mg/dL HDL Cholesterol 34.0 L (40.0-60.0) mg/dL Cholesterol/HDL Ratio 6.38 Vitamin B12 608.0 (200.0-944.0) pg/mL RBC Folate 619 (280 - 791) ng/mL TSH 1.350 (0.350-5.500) uIU/mL PTH Intact (14.0-72.0) pg/mL Urine Color Urine Appearance (Clear) Urine pH (5.0-8.0) Ur Specific [place] (1.001-1.035) Urine Protein (Negative) Urine Glucose (UA) (Negative) Urine Ketones (Negative) Urine Blood (Negative) Urine Nitrite (Negative) Urine Bilirubin (Negative) Urine Urobilinogen (<2.0) mg/dL Ur Leukocyte Esterase (Negative) Urine RBC (0-5) /hpf Urine WBC (0-5) /hpf Ur Squamous Epith Cells (0-4) /hpf Hyaline Casts (0-2) /lpf Urine Mucus (None) /hpf Salicylates mg/dL Urine Opiates Screen (NotDetected) Ur Oxycodone Screen (NotDetected) Urine Methadone Screen (NotDetected) Ur Propoxyphene Screen (NotDetected) Acetaminophen ug/mL Ur Barbiturates Screen (NotDetected) U Tricyclic Antidepress (NotDetected) Ur Phencyclidine Scrn (NotDetected) Ur Amphetamines Screen (NotDetected) U Methamphetamines Scrn (NotDetected) U Benzodiazepines Scrn (NotDetected) Urine Cocaine Screen (NotDetected) U Marijuana (THC) Screen (NotDetected) Serum Alcohol mg/dL HIV-1 Antibody Non-Reactive (Non-Reactive) HIV Ag/Ab Interpret HIV p24 Antibody Non-Reactive (Non-Reactive) HIV-2 Antibody Non-Reactive (Non-Reactive) HIV P24 Antigen Non-Reactive (Non-Reactive) HTLV I/II Ab (EIA) (Negative) MTHFR Genotype MTHFR Interpretation 04/25/20 04/25/20 04/25/20 Range/Units 10:23 10:23 10:23 WBC (3.8-10.6) k/uL RBC (3.80-5.40) m/uL Hgb (11.4-16.0) gm/dL Hct (34.0-46.0) % MCV (80.0-100.0) fL MCH (25.0-35.0) pg MCHC (31.0-37.0) g/dL RDW (11.5-15.5) % Plt Count (150-450) k/uL Neutrophils % % Lymphocytes % % Monocytes % % Eosinophils % % Basophils % % Neutrophils # (1.3-7.7) k/uL Lymphocytes # (1.0-4.8) k/uL Monocytes # (0-1.0) k/uL Eosinophils # (0-0.7) k/uL Basophils # (0-0.2) k/uL ESR (0-20) mm/hr PT (9.0-12.0) sec INR (<1.2) APTT (22.0-30.0) sec Sample Site ABG pH (7.35-7.45) ABG pCO2 (35-45) mmHg ABG pO2 (83-108) mmHg ABG HCO3 (21-25) mmol/L ABG Total CO2 (19-24) mmol/L ABG O2 Saturation (94-97) % ABG Base Excess mmol/L Alexey Test FiO2 % Sodium (137-145) mmol/L Potassium (3.5-5.1) mmol/L Chloride (98-107) mmol/L Carbon Dioxide (22-30) mmol/L Anion Gap mmol/L BUN (7-17) mg/dL Creatinine (0.52-1.04) mg/dL Est GFR (CKD-EPI)AfAm (>60 ml/min/1.73 sqM) Est GFR (CKD-EPI)NonAf (>60 ml/min/1.73 sqM) Glucose (74-99) mg/dL POC Glucose (mg/dL) (75-99) mg/dL POC Glu Watch Assembly Inspector ID Estimated Ave Glu mg/dL Hemoglobin A1c (4.0-6.0) % Calcium (8.4-10.2) mg/dL Total Bilirubin (0.2-1.3) mg/dL AST (14-36) U/L ALT (4-34) U/L Alkaline Phosphatase (38-126) U/L Ammonia (<30) umol/L Creatine Kinase (30-135) U/L Troponin I (0.000-0.034) ng/mL Total Protein (6.3-8.2) g/dL Albumin (3.5-5.0) g/dL Triglycerides (0.0-149.0) mg/dL Cholesterol (0-200) mg/dL LDL Cholesterol, Calc (0.0-131.0) mg/dL VLDL Cholesterol, Calc (5.00-40.00) mg/dL HDL Cholesterol (40.0-60.0) mg/dL Cholesterol/HDL Ratio Vitamin B12 (200.0-944.0) pg/mL RBC Folate (280 - 791) ng/mL TSH (0.350-5.500) uIU/mL PTH Intact 50.9 (14.0-72.0) pg/mL Urine Color Urine Appearance (Clear) Urine pH (5.0-8.0) Ur Specific [place] (1.001-1.035) Urine Protein (Negative) Urine Glucose (UA) (Negative) Urine Ketones (Negative) Urine Blood (Negative) Urine Nitrite (Negative) Urine Bilirubin (Negative) Urine Urobilinogen (<2.0) mg/dL Ur Leukocyte Esterase (Negative) Urine RBC (0-5) /hpf Urine WBC (0-5) /hpf Ur Squamous Epith Cells (0-4) /hpf Hyaline Casts (0-2) /lpf Urine Mucus (None) /hpf Salicylates mg/dL Urine Opiates Screen (NotDetected) Ur Oxycodone Screen (NotDetected) Urine Methadone Screen (NotDetected) Ur Propoxyphene Screen (NotDetected) Acetaminophen ug/mL Ur Barbiturates Screen (NotDetected) U Tricyclic Antidepress (NotDetected) Ur Phencyclidine Scrn (NotDetected) Ur Amphetamines Screen (NotDetected) U Methamphetamines Scrn (NotDetected) U Benzodiazepines Scrn (NotDetected) Urine Cocaine Screen (NotDetected) U Marijuana (THC) Screen (NotDetected) Serum Alcohol mg/dL HIV-1 Antibody (Non-Reactive) HIV Ag/Ab Interpret HIV p24 Antibody (Non-Reactive) HIV-2 Antibody (Non-Reactive) HIV P24 Antigen (Non-Reactive) HTLV I/II Ab (EIA) Negative (Negative) MTHFR Genotype SEE NOTE MTHFR Interpretation SEE NOTE 04/25/20 04/25/20 Range/Units 10:23 12:45 WBC (3.8-10.6) k/uL RBC (3.80-5.40) m/uL Hgb (11.4-16.0) gm/dL Hct (34.0-46.0) % MCV (80.0-100.0) fL MCH (25.0-35.0) pg MCHC (31.0-37.0) g/dL RDW (11.5-15.5) % Plt Count (150-450) k/uL Neutrophils % % Lymphocytes % % Monocytes % % Eosinophils % % Basophils % % Neutrophils # (1.3-7.7) k/uL Lymphocytes # (1.0-4.8) k/uL Monocytes # (0-1.0) k/uL Eosinophils # (0-0.7) k/uL Basophils # (0-0.2) k/uL ESR (0-20) mm/hr PT (9.0-12.0) sec INR (<1.2) APTT (22.0-30.0) sec Sample Site r rad ABG pH 7.39 (7.35-7.45) ABG pCO2 37 (35-45) mmHg ABG pO2 91 (83-108) mmHg ABG HCO3 23 (21-25) mmol/L ABG Total CO2 24 (19-24) mmol/L ABG O2 Saturation 97.1 H (94-97) % ABG Base Excess -2.3 mmol/L Alexey Test Yes FiO2 21 % Sodium (137-145) mmol/L Potassium (3.5-5.1) mmol/L Chloride (98-107) mmol/L Carbon Dioxide (22-30) mmol/L Anion Gap mmol/L BUN (7-17) mg/dL Creatinine (0.52-1.04) mg/dL Est GFR (CKD-EPI)AfAm (>60 ml/min/1.73 sqM) Est GFR (CKD-EPI)NonAf (>60 ml/min/1.73 sqM) Glucose (74-99) mg/dL POC Glucose (mg/dL) (75-99) mg/dL POC Glu Watch [employer] Inspector ID Estimated Ave Glu mg/dL 126 Hemoglobin A1c 6.0 (4.0-6.0) % Calcium (8.4-10.2) mg/dL Total Bilirubin (0.2-1.3) mg/dL AST (14-36) U/L ALT (4-34) U/L Alkaline Phosphatase (38-126) U/L Ammonia (<30) umol/L Creatine Kinase (30-135) U/L Troponin I (0.000-0.034) ng/mL Total Protein (6.3-8.2) g/dL Albumin (3.5-5.0) g/dL Triglycerides (0.0-149.0) mg/dL Cholesterol (0-200) mg/dL LDL Cholesterol, Calc (0.0-131.0) mg/dL VLDL Cholesterol, Calc (5.00-40.00) mg/dL HDL Cholesterol (40.0-60.0) mg/dL Cholesterol/HDL Ratio Vitamin B12 (200.0-944.0) pg/mL RBC Folate (280 - 791) ng/mL TSH (0.350-5.500) uIU/mL PTH Intact (14.0-72.0) pg/mL Urine Color Urine Appearance (Clear) Urine pH (5.0-8.0) Ur Specific [place] (1.001-1.035) Urine Protein (Negative) Urine Glucose (UA) (Negative) Urine Ketones (Negative) Urine Blood (Negative) Urine Nitrite (Negative) Urine Bilirubin (Negative) Urine Urobilinogen (<2.0) mg/dL Ur Leukocyte Esterase (Negative) Urine RBC (0-5) /hpf Urine WBC (0-5) /hpf Ur Squamous Epith Cells (0-4) /hpf Hyaline Casts (0-2) /lpf Urine Mucus (None) /hpf Salicylates mg/dL Urine Opiates Screen (NotDetected) Ur Oxycodone Screen (NotDetected) Urine Methadone Screen (NotDetected) Ur Propoxyphene Screen (NotDetected) Acetaminophen ug/mL Ur Barbiturates Screen (NotDetected) U Tricyclic Antidepress (NotDetected) Ur Phencyclidine Scrn (NotDetected) Ur Amphetamines Screen (NotDetected) U Methamphetamines Scrn (NotDetected) U Benzodiazepines Scrn (NotDetected) Urine Cocaine Screen (NotDetected) U Marijuana (THC) Screen (NotDetected) Serum Alcohol mg/dL HIV-1 Antibody (Non-Reactive) HIV Ag/Ab Interpret HIV p24 Antibody (Non-Reactive) HIV-2 Antibody (Non-Reactive) HIV P24 Antigen (Non-Reactive) HTLV I/II Ab (EIA) (Negative) MTHFR Genotype MTHFR Interpretation Disposition Clinical Impression: Altered mental status Disposition: ADMITTED IP TO THIS [facility] Condition: Stable Is patient prescribed a controlled substance at d/c from ED?: No Decision to Admit Reason: Admit from EC Decision Date: 04/24/20 Decision Time: 23:10
[2020-04-24 21:58] LABS: Basophils % (A) 1 %; Eosinophils % (A) 0 %; HCT 40.4 % (34.0-46.0); HGB 13.6 gm/dL (11.4-16.0); Lymphocytes # (A) 1.4 k/uL (1.0-4.8); Lymphocytes % (A) 31 %; MCH 29.6 pg (25.0-35.0); MCHC 33.6 g/dL (31.0-37.0); MCV 88.1 fL (80.0-100.0); Mean Platelet Volume 7.8; Monocytes # (A) 0.2 k/uL (0-1.0); Monocytes % (A) 4 %; Neutrophils # (A) 2.9 k/uL (1.3-7.7); Neutrophils % (A) 62 %; Platelet Count 189 k/uL (150-450); RBC 4.59 m/uL (3.80-5.40); RDW 13.1 % (11.5-15.5); WBC 4.6 k/uL (3.8-10.6)
[2020-04-24 22:07] LABS: ALT 14 U/L (4-34); AST 27 U/L (14-36); Acetaminophen <10.0 ug/mL; African American GFR (CKD) >90 (>60 ml/min/1.73 sqM); Albumin 4.3 g/dL (3.5-5.0); Alcohol <10 mg/dL; Alkaline Phosphatase 99 U/L (38-126); Anion Gap 9 mmol/L; Blood Urea Nitrogen 17 mg/dL (7-17); Calcium 9.5 mg/dL (8.4-10.2); Carbon Dioxide 24 mmol/L (22-30); Chloride 106 mmol/L (98-107); Creatine Kinase 134 U/L (30-135); Glucose 139 mg/dL (74-99); Non-African American GFR(CKD) 88 (>60 ml/min/1.73 sqM); Partial Thromboplastin Time 24.2 sec (22.0-30.0); Potassium 3.6 mmol/L (3.5-5.1); Prothrombin Time 10.1 sec (9.0-12.0); Sodium 139 mmol/L (137-145); Total Bilirubin 0.5 mg/dL (0.2-1.3); Total Protein 7.5 g/dL (6.3-8.2)
--- NOTE | 2020-04-24 22:08 | XR ---
EXAMINATION TYPE: XR chest 2V DATE OF EXAM: 04/24/2020 COMPARISON: NONE HISTORY: Altered mental status TECHNIQUE: 2 views FINDINGS: There is no heart failure nor confluent pneumonic infiltrate. There is slight increased int erstitial markings in the left lung. Heart size is normal. Costophrenic angles are clear. There are c hest leads. Bony thorax is intact. IMPRESSION: There is some mild interstitial infiltrate in the left midlung field. Normal heart.
[2020-04-24 22:34] LABS: Amphetamine Screen,Urine Not Detected (NotDetected); Appearance,Urine Clear (Clear); Barbiturate Screen,Urine Not Detected (NotDetected); Benzodiazepines Screen,Urine Not Detected (NotDetected); Bilirubin,Urine Negative (Negative); Blood,Urine Negative (Negative); Cocaine Screen,Urine Not Detected (NotDetected); Color,Urine Yellow; Glucose,Urine (UA) Negative (Negative); Hyaline Casts,Urine 6 /lpf (0-2); Ketones,Urine 1+ (Negative); Leukocyte Esterase,Urine Small (Negative); Methadone Screen, Urine Not Detected (NotDetected); Mucus,Urine Many /hpf; Nitrite,Urine Negative (Negative); Opiate Screen,Urine Detected (NotDetected); Oxycodone Screen, Urine Not Detected (NotDetected); Phencyclidine Screen,Urine Not Detected (NotDetected); Protein,Urine Trace (Negative); RBC,Urine 1 /hpf (0-5); Squamous Epithelial Cell,Urine 2 /hpf (0-4); Tricyclic Antidepressant,Urine Not Detected (NotDetected); Urn Cannabinoid Scrn Not Detected (NotDetected); WBC,Urine 3 /hpf (0-5)
--- NOTE | 2020-04-24 22:50 | CT ---
EXAMINATION TYPE: CT brain wo con DATE OF EXAM: 04/24/2020 COMPARISON: 04/18/2020 HISTORY: AMS, lower back pain CT DLP: 1062.8 mGycm Automated exposure control for dose reduction was used. There is extensive hypodensity in the periventricular white matter. There is no significant cerebral atrophy. There is no mass effect nor midline shift. There is no sign of intracranial hemorrhage. Ther e is some left side maxillary sinus mucosal thickening. IMPRESSION: Extensive white matter hypodensity without significant atrophy. This appears unchanged compared to ol d exam. This could relate to metabolic abnormality such as carbon monoxide poisoning.
[2020-04-24 22:52] LABS: Erythrocyte Sedimentation Rate 41 mm/hr (0-20)
--- NOTE | 2020-04-24 23:02 | CT ---
EXAMINATION TYPE: CT abdomen pelvis w con DATE OF EXAM: 04/24/2020 COMPARISON: 02/29/2020 HISTORY: AMS, lower back pain CT DLP: 495.6 mGycm Automated exposure control for dose reduction was used. CONTRAST: Performed with IV Contrast, patient injected with 100 mL of Isovue 370. There is some interstitial infiltrate and subsegmental atelectasis at the lung bases. There is no ple ural effusion. There is no pericardial effusion. Heart appears fairly normal. There are clips from cholecystectomy. There is mild ectasia of the biliary tree. Common bile duct param sures 11 mm. Spleen is intact. Stomach is intact. There is no evidence of pancreatic mass. There is no adrenal mass. Kidneys show satisfactory contrast opacification. There is no hydronephrosi s. The ureters are not dilated. Appendix is large and measures up to 9 mm. There is no sign of surrou nding inflammation. There is no retroperitoneal adenopathy. Bladder distends smoothly. There is no in guinal hernia. There is no free fluid in the pelvis. Uterus appears normal. There is no sign of a pel kay mass. Lumbar vertebra have normal spacing and alignment. Posterior elements are intact. There is no compression fracture. Bony pelvis is intact. Hip joints are intact. I see no bony destructive proc ess. There is no mesenteric edema. There is no ascites or free air. There is no sign of a bowel obstructio n. There is no evidence of pelvic mass. IMPRESSION: No evidence of renal stone or obstruction. There is clearing of the right side perinephric edema comp ared to old exam. There is clearing of the distal right ureteral stone apparently compared to old exa m. Appendix is increased in size compared to old exam. Appendicitis cannot be entirely excluded. No s ign of surrounding inflammation. Appendix measures 5.3 mm on old exam.
--- NOTE | 2020-04-24 23:04 | CT ---
EXAMINATION TYPE: CT lumbar spine w con DATE OF EXAM: 04/24/2020 COMPARISON: None HISTORY: AMS, lower back pain CT DLP: 495.6 mGycm Automated exposure control for dose reduction was used. CONTRAST: Performed with IV Contrast, patient injected with 100 mL of Isovue 370. Images obtained from the level of T12-S2 vertebra without contrast. Lumbar vertebra have fairly normal spacing and alignment. There is no compression fracture. Posterior elements are intact. I see no bony destructive process. Facet joints are intact. There is no evidenc e of lumbar paraspinal mass. I see no evidence of sacroiliitis. Sacroiliac joint spaces are fairly no rmal. IMPRESSION: Negative CT scan lumbar spine. No fracture. No evidence of spinal stenosis.
--- NOTE | 2020-04-24 23:10 | CT ---
EXAMINATION TYPE: CT angio head neck DATE OF EXAM: 04/24/2020 COMPARISON: None HISTORY: AMS, lower back pain CT DLP: 400 mGycm Automated exposure control for dose reduction was used. CONTRAST: Performed with IV Contrast, patient injected with 100 mL of Isovue 370. Images were obtained from the aortic arch to the vertex of the brain with IV contrast and 3-D post pr ocessed images. There is patchy bilateral upper lobe interstitial and airspace infiltrate. This is more noticeable in the posterior left upper lobe. There is no mediastinal adenopathy. The aortic arch is intact. Ascend ing aorta measures 3 cm. There is no dissection. There is no mediastinal adenopathy. There is contrast opacification of the subclavian arteries bilaterally. There is arterial flow in the common internal and external carotid arteries bilaterally. There is arterial flow in both vertebral arteries. The carotid artery bifurcations appear widely patent. There is no evidence of carotid or ve rtebral artery aneurysm or dissection. There is arterial flow in the vertebrobasilar artery system. T here is normal contrast opacification of the venous sinuses. There is arterial flow in the anterior middle and posterior cerebral arteries. There is diminutive le ft anterior cerebral artery. I see no evidence of intracranial aneurysm or neovascularity. There is n o evidence of intracranial mass. There is no pathologic enhancement. IMPRESSION: Negative CT angiogram of the neck. There is diminutive left anterior cerebral artery. This could relate to hemodynamic stenosis. No evid ence of intracranial aneurysm.
[2020-04-24] MEDS ORDERED: NALOXONE 0.4 MG/ML 1 ML VIAL IV PRN (23:11)
--- NOTE | 2020-04-25 08:17 | P.HPIM ---
History of Present Illness H&P Date: 04/25/20 Chief Complaint: Immobility This is a history of physical on a 65-year-old female who recently has moved here with her son and [id number] from [place]. Over the last month she's been having difficulty with cognition and ambulation. Computed tomography scan of the head in my office did show extensive white matter changes. Question element of encephalopathy. MRI was ordered but before this can be done she was admitted because of lack of mobility. There is lying which barrier. However she does not complain of any headache vision loss incontinence or numbness or tingling. We will consult physical therapy to see if she can truly ambulate properly. Review of Systems Constitutional: Denies chills, Denies fever Eyes: denies blurred vision, denies pain Ears, nose, mouth and throat: Denies headache, Denies sore throat Cardiovascular: Denies chest pain, Denies shortness of breath Respiratory: Denies cough Gastrointestinal: Denies abdominal pain, Denies diarrhea, Denies nausea, Denies vomiting Neurological: Reports as per HPI, Denies double vision, Denies head injury, Denies headaches, Denies hearing difficulties Psychiatric: Denies anxiety, Denies depression Past Medical History Past Medical History: Hypertension Additional Past Medical History / Comment(s): kidney stones History of Any Multi-Drug Resistant Organisms: None Reported Past Surgical History: Cholecystectomy, Orthopedic Surgery Additional Past Surgical History / Comment(s): rt shoulder surgery Past Anesthesia/Blood Transfusion Reactions: No Reported Reaction Past Psychological History: No Psychological Hx Reported Smoking Status: Never smoker Past Alcohol Use History: None Reported Past Drug Use History: None Reported - Past Family History Mother Family Medical History: Unable to Obtain Medications and Allergies Home Medications Medication Instructions Recorded Confirmed Type Acetaminophen-Codeine 300-30mg 1 - 2 tab PO Q4-6H PRN 04/24/20 04/24/20 History [Tylenol w/codeine #3] Aspirin EC [Ecotrin] 325 mg PO DAILY 04/24/20 04/24/20 History Donepezil [Aricept] 10 mg PO HS 04/24/20 04/24/20 History Allergies Allergy/AdvReac Type Severity Reaction Status Date / Time No Known Allergies Allergy Verified 04/24/20 21:55 Physical Exam Vitals: Vital Signs Temp Pulse Resp BP Pulse Ox 04/25/20 07:17 97.9 F 55 L 18 143/65 98 04/25/20 06:00 57 L 17 129/70 97 04/25/20 05:00 97.7 F 59 L 18 127/65 97 04/25/20 04:00 61 18 133/56 98 04/25/20 03:00 69 18 139/93 97 04/25/20 02:00 62 18 132/64 97 04/25/20 01:00 58 L 17 127/55 98 04/25/20 00:05 97.3 F L 63 17 159/72 98 04/24/20 23:00 57 L 18 147/100 97 04/24/20 22:30 156/60 04/24/20 22:00 159/71 04/24/20 21:52 54 L 18 159/71 100 04/24/20 21:30 57 L 15 172/72 100 04/24/20 21:15 59 L 18 193/82 100 04/24/20 21:11 56 L 12 04/24/20 20:56 97 F L 64 16 142/67 99 Intake and Output 04/24/20 04/25/20 04/25/20 22:59 06:59 14:59 Other: Weight 63.503 kg - Constitutional General appearance: no acute distress - EENT Eyes: EOMI - Neck Neck: no lymphadenopathy - Respiratory Respiratory: bilateral: CTA - Cardiovascular Rhythm: regular Heart sounds: normal: S1, S2 Abnormal Heart Sounds: no S3 Gallop - Gastrointestinal General gastrointestinal: soft, no tenderness - Integumentary Integumentary: no cellulitis - Neurologic Neurologic: CNII-XII intact Results CBC & Chem 7: 04/24/20 21:41 04/24/20 21:41 Labs: Abnormal Lab Results - Last 24 Hours (Table) 04/24/20 04/24/20 04/24/20 Range/Units 21:24 21:41 21:41 ESR 41 H (0-20) mm/hr Glucose 139 H (74-99) mg/dL POC Glucose (mg/dL) 128 H (75-99) mg/dL Urine Protein (Negative) Urine Ketones (Negative) Ur Leukocyte Esterase (Negative) Hyaline Casts (0-2) /lpf Urine Mucus (None) /hpf Urine Opiates Screen (NotDetected) 11/05/20 Range/Units 21:46 ESR (0-20) mm/hr Glucose (74-99) mg/dL POC Glucose (mg/dL) (75-99) mg/dL Urine Protein Trace H (Negative) Urine Ketones 1+ H (Negative) Ur Leukocyte Esterase Small H (Negative) Hyaline Casts 6 H (0-2) /lpf Urine Mucus Many H (None) /hpf Urine Opiates Screen Detected H (NotDetected) Assessment and Plan (1) Mild cognitive impairment with memory loss Current Visit: Yes Status: Acute Code(s): G31.84 - MILD COGNITIVE IMPAIRMENT, SO STATED SNOMED Code(s): 588244292 (2) Immobility Current Visit: Yes Status: Acute Code(s): Z74.09 - OTHER REDUCED MOBILITY SNOMED Code(s): 019062006 (3) Altered mental status Current Visit: Yes Status: Acute Code(s): R41.82 - ALTERED MENTAL STATUS, UNSPECIFIED SNOMED Code(s): 733737531 Plan: We will go ahead and consult neurology given her negative workup so far. She does complain of back pain but her lumbar CT does not show significant change. We'll go ahead and ask physical therapy to see the patient Reconcile home medications. Prognosis is guarded
[2020-04-25 08:28] LABS: Basophils % (A) 1 %; Eosinophils # (A) 0.1 k/uL (0-0.7); Eosinophils % (A) 1 %; HCT 37.4 % (34.0-46.0); HGB 12.8 gm/dL (11.4-16.0); Lymphocytes # (A) 1.4 k/uL (1.0-4.8); Lymphocytes % (A) 43 %; MCH 30.1 pg (25.0-35.0); MCHC 34.1 g/dL (31.0-37.0); MCV 88.3 fL (80.0-100.0); Mean Platelet Volume 7.7; Monocytes # (A) 0.2 k/uL (0-1.0); Monocytes % (A) 5 %; Neutrophils # (A) 1.6 k/uL (1.3-7.7); Neutrophils % (A) 48 %; Platelet Count 185 k/uL (150-450); RBC 4.23 m/uL (3.80-5.40); RDW 13.3 % (11.5-15.5); WBC 3.3 k/uL (3.8-10.6)
[2020-04-25 08:59] LABS: African American GFR (CKD) >90 (>60 ml/min/1.73 sqM); Anion Gap 6 mmol/L; Blood Urea Nitrogen 14 mg/dL (7-17); Calcium 8.7 mg/dL (8.4-10.2); Carbon Dioxide 22 mmol/L (22-30); Chloride 111 mmol/L (98-107); Glucose 94 mg/dL (74-99); Non-African American GFR(CKD) >90 (>60 ml/min/1.73 sqM); Potassium 3.8 mmol/L (3.5-5.1); Sodium 139 mmol/L (137-145)
--- NOTE | 2020-04-25 10:17 | P.CNNES ---
History of Present Illness Consult date: 04/25/20 Requesting physician: Estefania Butcher Reason for Consult: altered mental status History of Present Illness: This is a 65-year-old right-handed woman with medical history of episodic hypertention who presented to the emergency department on 04/24/2020 for being fatigue a day prior to presentation to the hospital. She was accompanied by her son and spoke with [id number] (via phone) who are helping with translation. Per the patient's son he states that the she is complaining of the generalized pain/aches, she's complaining of worsening of her back pain which she points to the thoracic region. But according to son the pain also is to be in the shoulders to be in the cervical region so it varies from time to time. In the last 3 weeks her son and opozdrvr-[id number]-dal noticed that she is having the tremor of the right and and they noticed that at resting. She had 3 falls since the patient moved the with her son and [id number] in January 2020. According to them she doesn't pick pulling machine tender her feet. Per the patient's son she's been having decline in her mentation in the last 1-2 years, misplacing things initially and losing train of thought and completing tasks which has progressively in worsening throughout the last 1-2 years but she and the last 4 months it's more drastic. She is able to recognize her son but the does not know the name of her son's fiance or his daughters name even though they've been together and no reported other for about 1 year. Patient is able to feed herself. She is able to use the bathroom on her own but that she does have episodes where she urinates in the room and the and on occasions the son stated that she would urinates the on a towel. Denies any bowel incontinence. There is no visual or auditory hallucination. There is no fever. She does have random gazing and the crying episodes. Prior to all this the patient was in [place] and her son was limited in the with her throughout except for a few month prior to January 2020 where he moved to [place] on i nitiation with his fiance then the patient that most with them in January 2020. Patient was started on Aricept 10 mg by her primary care doctor (Dr. Andrea). She has not seen a neurologist and the was planned for her to see Dr. Rebollar down the line but there is no appointment. Son notified me that the patient has episodic hypertension but whenever she gets it checked at the her physician's office it's normal so she is not a medication. She was told that there is suspicion that she has this lipidemia but that's not certain he admits. Son is uncertain if she had carbon monoxide poisoning. She is not on any medication other than the Aricept. Work-up in the hospital consisted of: Initial vital signs: Blood pressure of 142/67, heart rate of 64, respiratory of 16, temperature of 97 Fahrenheit oral and pulse ox of 99 set at room air. CT of the head was done and it shows extensive white matter hypodensity without significant atrophy. This appears unchanged compared to the old exam. This could relate to metabolic abnormality such as carbon monoxide poisoning. I reviewed images it but I don't think it is CO but cannot exclude it. CT angiography of the head and neck is reported as that there is diminutive left anterior cerebral artery. This could relate to hemodynamic stenosis. No evidence of intracranial aneurysm. While that CTA of the neck is reported as negative. CT of the lumbar spine was reported as negative CT lumbar spine. There is no fracture. There is no evidence of spinal stenosis. EKG is reported as sinus bradycardia. Ventricle rate of 53. Voltage criteria for left ventricle hypertrophy. Abnormal EKG. Chest clear was reported as there is some mild incision infiltrates in the left mediastinal field. Normal heart. ESR is 41 which is elevated and the white blood cells 4.6 which is normal. Review of Systems Review of system: The 12 point system was reviewed and apparent positive and negative per HPI. Past Medical History Past Medical History: Hypertension Additional Past Medical History / Comment(s): kidney stones History of Any Multi-Drug Resistant Organisms: None Reported Past Surgical History: Cholecystectomy, Orthopedic Surgery Additional Past Surgical History / Comment(s): rt shoulder surgery Past Anesthesia/Blood Transfusion Reactions: No Reported Reaction Past Psychological History: No Psychological Hx Reported Smoking Status: Never smoker Past Alcohol Use History: None Reported Past Drug Use History: None Reported - Past Family History Mother Family Medical History: Unable to Obtain Father History Unknown: Yes Additional Family Medical History / Comment(s): Father as a younger man but pt does not recall cause. Medications and Allergies Home Medications Medication Instructions Recorded Confirmed Type Acetaminophen-Codeine 300-30mg 1 - 2 tab PO Q4-6H PRN 04/24/20 04/24/20 History [Tylenol w/codeine #3] Aspirin EC [Ecotrin] 325 mg PO DAILY 04/24/20 04/24/20 History Donepezil [Aricept] 10 mg PO HS 04/24/20 04/24/20 History Allergies Allergy/AdvReac Type Severity Reaction Status Date / Time No Known Allergies Allergy Verified 04/24/20 21:55 Physical Examination - Vital Signs Vital Signs: Vital Signs Temp Pulse Resp BP Pulse Ox 04/25/20 07:17 97.9 F 55 L 18 143/65 98 04/25/20 06:00 57 L 17 129/70 97 04/25/20 05:00 97.7 F 59 L 18 127/65 97 04/25/20 04:00 61 18 133/56 98 04/25/20 03:00 69 18 139/93 97 04/25/20 02:00 62 18 132/64 97 04/25/20 01:00 58 L 17 127/55 98 04/25/20 00:05 97.3 F L 63 17 159/72 98 04/24/20 23:00 57 L 18 147/100 97 04/24/20 22:30 156/60 04/24/20 22:00 159/71 04/24/20 21:52 54 L 18 159/71 100 04/24/20 21:30 57 L 15 172/72 100 04/24/20 21:15 59 L 18 193/82 100 04/24/20 21:11 56 L 12 04/24/20 20:56 97 F L 64 16 142/67 99 Intake and Output 04/24/20 04/25/20 04/25/20 22:59 06:59 14:59 Other: Weight 63.503 kg GENERAL: The patient is lying in bed and is in mild acute distress. CHEST: The heart rate is regular rate rhythm. No murmurs to auscultation. LUNG: Clear to auscultation bilaterally no wheezing noted throughout. Not labored breathing. ABDOMEN/GI: Bowel sounds present in all 4 quadrants. No tenderness to palpation throughout. MUSCULOSKELETAL: Tender to touch in thoracic region and seemed localized at lower thoracic area. NEUROLOGICAL: Patient's son was helping with translation during the exam. Higher mental function: The patient is awake, alert, oriented to self and place. She did state she is in hospital but does not know name. For month she could not tell me what month. For year with options she correctly chose the correct year. Patient is following simple commands. No aphasia and no neglect. Cranial nerves: The pupils are round, equal and reactive to light and accommodation. Visual bauman are full to confrontation throughout. Extraocular movement is intact no nystagmus is noted. Facial sensation is normal to touch throughout. The facial strength is normal throughout. Hearing is normal bilaterally to hand rub. Tongue is midline and moved [id number] without any difficulty. No dysarthria is noted. Shoulder shrug is normal bilaterally. Motor: Gait is deferred because of patient's pain. The strength is 5 over 5 throughout. Normal tone and bulk. She does have resting tremor of right upper extremity. Cerebellum: Normal finger to nose bilaterally. Sensation: Sensation is normal to touch throughout. Reflexes (right/left): 2+ throughout. Plantars are downgoing bilaterally. Results POC glucose is 128. Calcium is 9.5. AST 27, ALT of 14. Ammonia is less than 9. Alkaline phosphatase is 99. Creatinine kinase is 134. Urinalysis is appears clear, nitrate was negative, leukocyte esterase small, urine white blood cell is 3. Toxicology screen is positive for opiates otherwise the standards urine drug screen is negative. Serum alcohol was less than 10. Salicylates is 6.0 is normal Acetaminophen is less than 10 which is normal - Laboratory Findings CBC and BMP: 04/25/20 08:11 04/25/20 08:11 Abnormal Lab Findings: Abnormal Labs 04/24/20 04/24/20 04/24/20 21:24 21:41 21:41 WBC ESR 41 H Glucose 139 H POC Glucose (mg/dL) 128 H Urine Protein Urine Ketones Ur Leukocyte Esterase Hyaline Casts Urine Mucus Urine Opiates Screen 04/24/20 04/25/20 21:46 08:11 WBC 3.3 L ESR Glucose POC Glucose (mg/dL) Urine Protein Trace H Urine Ketones 1+ H Ur Leukocyte Esterase Small H Hyaline Casts 6 H Urine Mucus Many H Urine Opiates Screen Detected H Assessment and Plan Assessment: This is a 65-year-old woman that presented to the emergency department because of worsening of her back pain. Pain is mostly in the cervical/thoracic region. She is also having generalized aches/pain. According to the son that she's been having the decline of mentation last 1 to 2 years but has been worsening and last 4 months. She is also having the resting tremor of the right upper extremity for the last 3 weeks. Her sister was 5 years younger has some "abnormal movement of head". Extensive Leukodystrophy: Unknow exact etiology. Metabolic vs genetic vs ?Carbon monoxide poisoining (unlikely from my standpoint but cannot rule out) Encephalopathy likely due to above Resting tremor in last 3 weeks and falls possibly due to above Falls (last fall was 1 month ago) Plan: I ordered MRI of the brain and the cervical spine for better delineation of the patient leukoencephalopathy. I ordered the CT thoracic spine since the patient is having the back pain in that region and to rule out any fracture. Ordered routine EEG (04/25/20): Normal. There are no focal slowing, epileptifo rm discharge or seizure during this study. I ordered TSH, vitamin B12, MTHFR genotype, folate, PTH, lipid panel. Ordered lupus anticoagulant Physical therapy and occupation therapy are consulted. The plan was discussed with the patient's son. Thank you for the consultation. Dr. Torre will be on service for Neurology on 04/26/2020 as well as 04/27/2020. Edmond Beatty M.D. Neuro-hospitalist Time with Patient: Greater than 30
[2020-04-25 12:51] LABS: ABG Base Excess -2.3 mmol/L; ABG HCO3 23 mmol/L (21-25); ABG Oxygen Saturation 97.1 % (94-97); ABG PCO2 37 mmHg (35-45); ABG PH 7.39 (7.35-7.45); ABG PO2 91 mmHg (83-108); ABG TCO2 24 mmol/L (19-24); Allen Test Performed? Yes
[2020-04-25 14:58] LABS: Chol/HDL Ratio 6.38
[2020-04-25 15:01] VITALS: BMI 26.4
--- NOTE | 2020-04-25 16:29 | CT ---
EXAMINATION TYPE: CT thoracic spine wo con DATE OF EXAM: 04/25/2020 COMPARISON: None HISTORY: Back pain CT DLP: 901 mGycm Automated exposure control for dose reduction was used. FINDINGS: No acute fracture or dislocation of the thoracic spine. Normal alignment of the thoracic spine. Verte bral body heights and disc spaces are within normal limits. Vertebral body hemangiomas incidentally n oted. There is mild multilevel degenerative endplate spurring. There are a few mild posterior disc pr otrusions, with no stenosis of the spinal canal. No significant facet arthropathy or neural foraminal bony encroachment. No spondylolisthesis. Bibasilar atelectasis. Incompletely visualized asymmetric opacity of the posterior left upper lobe. N o pleural effusion. IMPRESSION: 1. No acute fracture or dislocation. 2. Mild degenerative disc disease of the thoracic spine. 3. Incompletely visualized opacity of the posterior left upper lobe. Findings may represent asymmetri c dependent atelectasis versus developing consolidation.
[2020-04-25 18:04] LABS: HIV 2 AB Non-Reactive (Non-Reactive); HIV AB P24 Non-Reactive (Non-Reactive); HIV P24 AG Non-Reactive (Non-Reactive)
[2020-04-25] MEDS ORDERED: ONDANSETRON 4 MG/2 ML VIAL IVP PRN (18:36)
[2020-04-25] MEDS: traMADol 50 MG TAB PO PRN (20:00)
[2020-04-25] MEDS: DONEPEZIL 10 MG TAB PO SCH (20:00)
--- NOTE | 2020-04-25 21:43 | EEG ---
ELECTROENCEPHALOGRAM REPORT DATE OF SERVICE: 04/25/2020 CLINICAL HISTORY: This is a 65-year-old female who presented to the emergency department on 04/21/2020 for worsening of her back pain and progressive worsening of mental status. This video EEG was obtained to evaluate for seizure and epileptiform activity. RELEVANT MEDICATION: Patient is not on any centrally active medication. EEG TYPE: A routine 21-channel EEG was performed with video using the 10/20 electrode placement system. DESCRIPTION: Wakefulness is only obtained. During wakefulness, there is a posterior-dominant rhythm of low to moderate voltage, reactive, well modulated of 9-10 hertz over bilateral hemispheres. There was no physiological stage II sleep. INTERICTAL AND ICTAL: None. ACTIVATION PROCEDURE: Photic stimulation did not evoke a posterior driving response over bilateral hemispheres. Hyperventilation was not performed because of the patient's clinical history. CLINICAL INTERPRETATION: This is a normal routine EEG. There are no focal slowing, epileptiform discharges or seizure during the study. Clinical correlation is recommended. MMJOVANNI / ANGELITAN: [id number] / KAREN
[2020-04-26] MEDS: SODIUM CHLORIDE 0.9% 1,000 ML IV SCH ×2 (00:50→08:05)
[2020-04-26] MEDS: ASPIRIN 325 MG TAB PO SCH (08:05)
--- NOTE | 2020-04-26 15:06 | MR ---
EXAMINATION TYPE: MR brain/cspine wo/w DATE OF EXAM: 04/26/2020 COMPARISON: CTA head and neck 04/24/2020. CT brain 04/24/2020. HISTORY: altered mental status, falls. Leukoencephalopathy TECHNIQUE: Multiplanar, multisequence images of the brain, brainstem, and cervical spine is performed without an d with IV contrast, utilizing 6.5 mL intravenous Gadavist . FINDINGS: The bilateral cerebral hemispheres demonstrate diffuse confluent T2 FLAIR intense signal symmetricall y involving the subcortical and periventricular white matter, and to a much lesser extent the deep wh ite matter within the alisa, basal ganglia, and posterior limb of the internal capsule. There is no re stricted diffusion or enhancement of the T2 FLAIR signal. There is also diffuse T2 hyperintense, T1 h ypointense signal and mild dilatation of the central canal of the entire visualized cervical and thor acic spinal cord, without enhancement. The ventricular system and cisternal spaces are normal in size and appearance. Midline structures de monstrate normal morphology. There is no herniation of the cerebellar tonsils The craniocervical junc tion appears within normal limits. Post contrast images demonstrate no abnormal enhancement of the b rain. The dural venous sinuses appear patent. Globes are grossly symmetric. There is mucosal thickeni ng of the left maxillary sinus. There is no significant degenerative disease of the cervical spine contributing to narrowing of the s joselin canal. IMPRESSION: Diffuse cerebellar confluent symmetric FLAIR hyperintense signal predominantly of the periventricular and subcortical white matter. There is mild deep white matter T2 FLAIR hyperintense signal. There is also diffuse T2 hyperintense signal of the central canal of the entire visualized cervical and thora cic spinal cord, which may represent white matter involvement versus syrinx. This appearance is seen with leukoencephalopathy with brainstem and spinal cord involvement, however patient's age makes this diagnosis unlikely. Additional causes of confluent diffuse cerebral versus periventricular predomina nt leukoencephalopathy should be explored in this patient.
--- NOTE | 2020-04-26 17:11 | P.PN ---
Subjective Progress Note Date: 04/26/20 The patient is seen in neurologic follow-up on April 26, 2020, via telemetry neurology. The patient's son Alfredito is present at the bedside at the time of the evaluation. He is able to provide a history for me. Praneeth tells me that he began to notice his mother having difficulty with her memory, approximately 2-1/2 years ago. Initially the memory problems were mild, such as forgetting where she put something or why she was going into her room. These memory problems have progressed. The patient now will forget what she is doing loss she is in the middle of doing it. Patient also reportedly forgets where the bathroom is and how to use the bathroom. In addition, the patient began to have a tremor of her right hand. This tremor has been increasing over the past month. Patient also has been having difficulty with balance. She has fallen. According to the patient's son, when she goes up the stairs in their home, she "goes down on all fours", to get up the stairs. When going down the stairs, she sits down and slides down the stairs on her buttocks. The patient also reportedly shuffles her feet when walking. The patient reportedly has decreased range of motion of her right greater than left shoulder. There is no difficulty swallowing. There are no episodes of freezing. According to the patient's son, the patient's sister may have "Parkinson's disease". She reportedly has shaking of her head and hands. There are no other reported neurological disorders in the family. Objective - Vital Signs Vital signs: Vital Signs Temp 97.5 F L 04/26/20 04:53 Pulse 57 L 04/26/20 14:08 Resp 16 04/26/20 14:08 BP 125/68 04/26/20 04:53 Pulse Ox 98 04/26/20 04:53 Intake & Output 04/25/20 04/26/20 04/26/20 18:59 06:59 18:59 Intake Total 1240 80 240 Output Total 200 Balance 1240 -120 240 Weight 63.503 kg Intake: Intake, IV Titration 160 80 Amount Sodium Chloride 0.9% 1, 160 80 000 ml @ 20 mls/hr IV . Q24H [facility] Rx#:[id number] Oral 1080 240 Output: Urine 200 Other: Voiding Method Bedside Commode Bedside Commode Bedside Commode # Voids 2 3 3 - Exam Gen.: The patient is reclining in the bed. She is well-nourished, well- developed and in no acute distress. HEENT: Head is atraumatic, normocephalic. Fundus not visualized. There is no scleral icterus. Mucous membranes are moist. Heart: Regular rate and rhythm Extremities: Without edema Neurological examination Mental status: Patient is awake and alert. She is oriented to her day and month of . She is not oriented to her year of or her age. The patient is not oriented to the current year or the current president. Her speech is clear. Cranial nerves: Pupils are equal, round and reactive to light. Visual bauman are full to confrontation. Extraocular movements are intact. There is no facial asymmetry. Hearing is grossly intact. Shoulder shrug is symmetric. Tongue protrudes midline. Motor: Strength is 5/5 throughout. Tone is normal. There is no cogwheel rigidity. Coordination: Finger to nose testing is intact. There is bilateral bradykinesia. There is a resting tremor of the right upper extremity. Gzyo-tl-cxnw testing is intact. Deep tendon reflexes: 1+/4+ throughout Sensation: Light touch and proprioception are intact Gait: Slightly wide-based with mild shuffling - Labs CBC & Chem 7: 04/25/20 08:11 04/25/20 08:11 Labs: Abnormal Lab Results - Last 24 Hours (Table) 04/25/20 Range/Units 10:23 Triglycerides 150.0 H (0.0-149.0) mg/dL Cholesterol 217 H (0-200) mg/dL LDL Cholesterol, Calc 153.0 H (0.0-131.0) mg/dL HDL Cholesterol 34.0 L (40.0-60.0) mg/dL Assessment and Plan Assessment: 1. 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 It can be seen in adults, however usually onset is at a younger age Must also consider Sjogren syndrome versus HIDE TRIMMER lymphoma (less likely since there is no gadolinium enhancement) Must also consider infection Plan: 1. Ordered blood work to check for Sjogren's syndrome, as well as several other disorders 2. MRI spectroscopy may be helpful in further differentiating the diagnosis 3. The patient may require lumbar puncture to rule out HIDE TRIMMER lymphoma and HIDE TRIMMER infection Time with Patient: Greater than 30 (spent 40 minutes with patient via teleneurology)
[2020-04-26] MEDS ORDERED: Acetaminophen-Codeine 300-30mg TAB PO PRN (19:07)
[2020-04-26] MEDS: traMADol 50 MG TAB PO PRN (19:31)
[2020-04-26] MEDS: HEPARIN SODIUM,PORCINE 5,000 UNIT/ML 1 ML VIAL SQ SCH (19:57)
[2020-04-26] MEDS: DONEPEZIL 10 MG TAB PO SCH (19:58)
--- NOTE | 2020-04-26 20:08 | PN ---
PROGRESS NOTE DATE OF SERVICE: 04/26/2020 I am covering for Dr. Andrea. This 65-year-old woman was admitted with severe back pain. Also had a brain and cervical MRI also which showed diffuse cerebral confluent hyperdense signal noted. Diffuse T2 hyperintense signal in the was also visualized. Leukoencephalopathy is considered as a possibility. Neurology is following the patient closely. PAST MEDICAL HISTORY: Reviewed. REVIEW OF SYSTEMS: CARDIOVASCULAR: No angina. RESPIRATORY: As mentioned earlier. GI: As mentioned earlier. : No dysuria. NERVOUS SYSTEM: No numbness or weakness. CURRENT MEDICATIONS: Reviewed and include aspirin, Aricept, Narcan, Zofran. PHYSICAL EXAM: Patient is alert, oriented x3. Pulse is 67, blood pressure 130/67, respiration 18, temperature 98.2. HEENT: Conjunctivae normal. NECK: No jugular venous distention. RESPIRATORY: Breath sounds diminished at the bases. No rhonchi, no crackles. HEART: S1 and S2, muffled. ABDOMEN: Soft. EXTREMITIES: No edema, no swelling. NERVOUS: No focal deficits. LABS: Triglycerides 150, cholesterol 217, LDL is 153. ASSESSMENT: 1. Severe back pain with possibly degenerative disc disease. 2. 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 3. Gait dysfunction. 4. Hyperlipidemia. 5. History of hypertension. 6. History of nephrolithiasis. 7. History of cholecystectomy. 8. History of degenerative joint disease. 9. FULL CODE. RECOMMENDATIONS AND DISCUSSION: This is a 65-year-old woman who presented with multiple complex medical issues, will monitor the patient closely. Continue the current medications and symptomatic treatment. The patient apparently moved from [facility] to [place] at the age of 21 years. HIV is negative. I would also get Infectious Disease evaluation for further evaluation. Neurology has been consulted. Sjogren syndrome versus TAR POT WORKER lymphoma is also a possibility. I would also recommend a Hematology/Oncology evaluation also. Prognosis guarded. Further recommendations to follow. MMODL / IJN: [id number] / MTDGaurang
[2020-04-27] MEDS: traMADol 50 MG TAB PO PRN ×2 (05:57→12:38)
[2020-04-27 07:25] LABS: Basophils % (A) 1 %; Eosinophils % (A) 1 %; HCT 38.7 % (34.0-46.0); HGB 12.5 gm/dL (11.4-16.0); Lymphocytes # (A) 1.3 k/uL (1.0-4.8); Lymphocytes % (A) 34 %; MCH 28.6 pg (25.0-35.0); MCHC 32.3 g/dL (31.0-37.0); MCV 88.6 fL (80.0-100.0); Mean Platelet Volume 7.4; Monocytes # (A) 0.2 k/uL (0-1.0); Monocytes % (A) 5 %; Neutrophils # (A) 2.1 k/uL (1.3-7.7); Neutrophils % (A) 58 %; Platelet Count 207 k/uL (150-450); RBC 4.37 m/uL (3.80-5.40); RDW 13.1 % (11.5-15.5); WBC 3.7 k/uL (3.8-10.6)
[2020-04-27] MEDS: HEPARIN SODIUM,PORCINE 5,000 UNIT/ML 1 ML VIAL SQ SCH ×2 (09:09→20:10)
[2020-04-27] MEDS: ASPIRIN 325 MG TAB PO SCH (09:09)
[2020-04-27] MEDS: PANTOPRAZOLE 40 MG TABLET PO SCH (09:09)
[2020-04-27 12:01] LABS: Hepatitis B Core IgM Non-Reactive (Non-Reactive); Hepatitis C IgG Antibody Non-Reactive (Non-Reactive)
[2020-04-27 13:27] LABS: African American GFR (CKD) 110.1 (60.0-200.0); Anion Gap 10.9 mmol/L (4.00-12.00); Calcium 9.2 mg/dL (8.7-10.3); Carbon Dioxide 25.1 mmol/L (21.6-31.8); Potassium 3.8 mmol/L (3.5-5.5)
[2020-04-27] MEDS: DONEPEZIL 10 MG TAB PO SCH (20:10)
[2020-04-27] MEDS: ATORVASTATIN 10 MG TAB PO SCH (20:10)
--- NOTE | 2020-04-27 22:24 | CT ---
EXAMINATION TYPE: CT angio chest DATE OF EXAM: 04/27/2020 COMPARISON: None HISTORY: pulmonary embolus CT DLP: 205.1 mGycm Automated exposure control for dose reduction was used. CONTRAST: Performed with IV Contrast, patient injected with 100 mL of Isovue 370. There are 3-D post processed images. There is some patchy airspace infiltrate in the periphery of the left lung along the lateral chest wa ll in the left upper lobe and left lower lobe. The other lung bauman are fairly clear. There is no pl eural effusion. Heart size is normal. There is no pericardial effusion. There is normal contrast opacification of the pulmonary arteries. There are no filling defects. There is no mediastinal adenopathy. Thoracic aorta is intact. There is no aneurysm or dissection. IMPRESSION: No evidence of pulmonary embolism. Infiltrate in the periphery of the left lung consistent with pneumonia..
[2020-04-28] MEDS: SODIUM CHLORIDE 0.9% 1,000 ML IV SCH ×2 (00:52→20:57)
--- NOTE | 2020-04-28 01:41 | PN ---
PROGRESS NOTE DATE OF SERVICE: 04/27/2020 I am covering for Dr. Andrea. This 65-year-old woman admitted with multiple medical problems, also had brain cervical MRI showed diffuse cerebellar confluent hyperdense signal and possibly indicated leukoencephalopathy and also recommended Neurology and as well as Infectious Disease evaluation. HIV testing was negative. Patient will be closely monitored. Patient is able to ambulate with some support at this time. Otherwise, vital signs to be monitored. PAST MEDICAL HISTORY: Reviewed. REVIEW OF SYSTEMS: CARDIOVASCULAR SYSTEM: No angina. RESPIRATORY SYSTEM: As mentioned earlier. GI: No nausea. : No dysuria. NERVOUS SYSTEM: As mentioned earlier. CURRENT MEDICATIONS: Current medications are reviewed and include Tylenol No.3, aspirin, Aricept, heparin, Narcan, Zofran, Protonix. Doses are reviewed. PHYSICAL EXAMINATION: The patient is alert and oriented x3. Pulse is 77, blood pressure 164/88, respiration 18, temperature 97.5, pulse ox 98% on room air. HEENT: Conjunctivae normal. NECK: No jugular venous distention. CARDIOVASCULAR: S1, S2 muffled. RESPIRATORY: Breath sounds diminished at the bases. Scattered rhonchi and crackles. ABDOMEN: Soft, nontender. LEGS: No edema, no swelling. NERVOUS SYSTEM: Diffusely weak. Tone is increased. LABS: WBC 3.7, hemoglobin 12.5. D-dimer is 1.32. C-reactive protein is 17.7. Hepatitis panel is nonreactive. ASSESSMENT: 1. Severe back pain possible degenerative joint disease. 2. Change in mental status, metabolic encephalopathy, multifactorial. 3. Possible multifocal leukoencephalopathy of the brain and spinal cord, etiology undetermined. 4. Gait dysfunction. 5. Elevated D-dimer. 6. Hyperlipidemia. 7. Hypertension. 8. History of nephrolithiasis. 9. History of cholecystectomy. 10.History of degenerative joint disease. 11.Hypercholesterolemia. 12.FULL CODE. RECOMMENDATIONS AND DISCUSSION: Recommend to continue current medications, continue symptomatic treatment. Otherwise I would recommend CT angio of the chest. Other than that, I would also recommend continue to monitor. Add Lipitor to the current regimen. The patient is already on aspirin. Neurology and Infectious Disease evaluation tomorrow. Guarded prognosis. Further recommendations to follow. Dr. Andrea will follow. MMODL / IJN: [id number] /
[2020-04-28 06:22] LABS: Basophils % (A) 1 %; Eosinophils % (A) 1 %; HCT 38.9 % (34.0-46.0); Lymphocytes # (A) 1.2 k/uL (1.0-4.8); Lymphocytes % (A) 24 %; MCH 28.9 pg (25.0-35.0); MCHC 33.4 g/dL (31.0-37.0); MCV 86.7 fL (80.0-100.0); Mean Platelet Volume 7.9; Monocytes # (A) 0.2 k/uL (0-1.0); Monocytes % (A) 5 %; Neutrophils # (A) 3.2 k/uL (1.3-7.7); Neutrophils % (A) 68 %; Platelet Count 224 k/uL (150-450); RBC 4.49 m/uL (3.80-5.40); RDW 13.1 % (11.5-15.5); WBC 4.7 k/uL (3.8-10.6)
[2020-04-28] MEDS: PANTOPRAZOLE 40 MG TABLET PO SCH (08:18)
[2020-04-28] MEDS: ASPIRIN 325 MG TAB PO SCH (08:18)
[2020-04-28] MEDS: HEPARIN SODIUM,PORCINE 5,000 UNIT/ML 1 ML VIAL SQ SCH ×2 (08:19→20:59)
--- NOTE | 2020-04-28 08:35 | P.PN ---
Subjective Principal diagnosis: Altered mental status This is 65-year-old female with acute altered mental status. MRI shows significant white matter and leukoencephalopathy. Multiple consultants are noted including hematology oncology with infectious disease and neurology. Clinically, the patient seems much more improved sitting at edge of the bed and speaking without slurring. Objective - Vital Signs Vital signs: Vital Signs Temp 97.9 F 04/28/20 05:00 Pulse 86 04/28/20 05:00 Resp 14 04/28/20 05:00 BP 133/82 04/28/20 05:00 Pulse Ox 98 04/28/20 05:00 Intake & Output 04/27/20 04/28/20 04/28/20 18:59 06:59 18:59 Intake Total 240 960 Output Total 200 Balance 40 960 Intake: Oral 240 960 Output: Urine 200 Other: Voiding Method Bedside Commode Bedside Commode # Voids 5 1 # Bowel Movements 1 2 - Constitutional General appearance: Present: average body habitus - EENT Eyes: Absent: abnormal pupil - Neck Neck: Absent: lymphadenopathy - Respiratory Respiratory: bilateral: CTA - Cardiovascular Rhythm: regular Heart sounds: normal: S1, S2 Abnormal Heart Sounds: Absent: S3 Gallop - Gastrointestinal General gastrointestinal: Present: soft. Absent: tenderness - Labs CBC & Chem 7: 04/28/20 05:29 04/27/20 07:01 Assessment and Plan (1) Mild cognitive impairment with memory loss Current Visit: Yes Status: Acute Code(s): G31.84 - MILD COGNITIVE IMPAIRMENT, SO STATED SNOMED Code(s): 981834704 (2) Immobility Current Visit: Yes Status: Acute Code(s): Z74.09 - OTHER REDUCED MOBILITY SNOMED Code(s): 216056821 (3) Altered mental status Current Visit: Yes Status: Acute Code(s): R41.82 - ALTERED MENTAL STATUS, UNSPECIFIED SNOMED Code(s): 668918329 Plan: We will go ahead and consult neurology given her negative workup so far. MRI does show leukoencephalopathy. We'll continue to follow. EP EEG is nominal. Appreciate multiple consultants input.
[2020-04-28] MEDS: traMADol 50 MG TAB PO PRN (10:03)
[2020-04-28 10:11] LABS: African American GFR (CKD) 110.1 (60.0-200.0); Anion Gap 14.7 mmol/L (4.00-12.00); BUN/Creat Ratio 23.33 Ratio (12.00-20.00); Calcium 9.4 mg/dL (8.7-10.3); Carbon Dioxide 19.3 mmol/L (21.6-31.8); Potassium 3.7 mmol/L (3.5-5.5)
[2020-04-28 12:48] LABS: APTT 40 Sec(s) (<43); Dilute Russell Viper Venom 35 Sec(s) (<44)
[2020-04-28] MEDS ORDERED: IOPAMIDOL CONTRAST (ORAL USE) VIAL PO PRN (13:03)
--- NOTE | 2020-04-28 14:38 | P.CONS ---
History of Present Illness - Reason for Consult Consult date: 04/28/20 Abnormal brain MRI - History of Present Illness The patient is a 65-year-old lady, who recently moved to [place]. She was brought in by her family because of progressive symptoms over the past one year. During that time she has had changes in mentation, including difficulty with memory, forgetting names, misplacing objects, episodes of staring blankly. The symptoms have become more prominent over the past 1-2 months. During this time, Other symptoms have included multiple areas of joint pains, also progressive, overall decreased activity and generalized weakness, as well as false. Again, the symptoms have been more progressive in the past few weeks. She was supposed to have MRI as an outpatient, but was brought into the emergency room because of marked increase in weakness and difficulty in ambulation. MRI showed fairly diffuse white matter changes in the brain, extending into the spinal cord. Consult was placed because a possibility of malignant involvement. History from the patient is somewhat limited because of a language barrier. However, she was quite definitive, that she had never had any malignancy before. She also denied any history of excessive alcohol use, or nutritional deficiencies. Review of Systems Constitutional: Reports chronic pain, Reports fatigue, Reports weakness Eyes: denies blurred vision, denies pain Ears: deny: decreased hearing, ear discharge, earache, tinnitus Ears, nose, mouth and throat: Denies headache, Denies sore throat Cardiovascular: Reports decreased exercise tolerance Respiratory: Denies cough Gastrointestinal: Denies abdominal pain, Denies diarrhea, Denies nausea, Denies vomiting Genitourinary: Reports mixed incontinence Menstruation: Reports postmenopausal Musculoskeletal: Reports frequent falls, Reports muscle weakness Integumentary: Denies pruritus, Denies rash Neurological: Reports confusion, Reports gait dysfunction, Reports lack of coordination, Reports memory loss, Reports motor disturbance, Reports tremors, Reports weakness Psychiatric: Reports confusion, Reports memory loss Endocrine: Reports fatigue, Denies weight change Hematologic/Lymphatic: Reports as per HPI Past Medical History Past Medical History: Hypertension Additional Past Medical History / Comment(s): kidney stones History of Any Multi-Drug Resistant Organisms: None Reported Past Surgical History: Cholecystectomy, Orthopedic Surgery Additional Past Surgical History / Comment(s): rt shoulder surgery Past Anesthesia/Blood Transfusion Reactions: No Reported Reaction Past Psychological History: No Psychological Hx Reported Smoking Status: Never smoker Past Alcohol Use History: None Reported Past Drug Use History: None Reported - Past Family History Mother Family Medical History: Unable to Obtain Additional Family Medical History / Comment(s): Mother of old age Father History Unknown: Yes Additional Family Medical History / Comment(s): Father as a younger man but pt does not recall cause. Medications and Allergies Home Medications Medication Instructions Recorded Confirmed Type Acetaminophen-Codeine 300-30mg 1 - 2 tab PO Q4-6H PRN 04/24/20 04/24/20 History [Tylenol w/codeine #3] Aspirin EC [Ecotrin] 325 mg PO DAILY 04/24/20 04/24/20 History Donepezil [Aricept] 10 mg PO HS 04/24/20 04/24/20 History Allergies Allergy/AdvReac Type Severity Reaction Status Date / Time No Known Allergies Allergy Verified 04/24/20 21:55 Physical Exam Vitals: Vital Signs Temp Pulse Resp BP Pulse Ox 04/28/20 13:00 97.5 F L 71 16 149/77 98 04/28/20 05:00 97.9 F 86 14 133/82 98 04/28/20 00:00 16 04/27/20 21:00 97.6 F 94 16 137/85 97 Intake and Output 04/27/20 04/28/20 04/28/20 22:59 06:59 14:59 Intake Total 960 Balance 960 Intake: Oral 960 Other: Voiding Method Bedside Commode Bedside Commode # Voids 1 1 # Bowel Movements 2 - Constitutional General appearance: no acute distress - EENT Eyes: EOMI, PERRLA ENT: hearing grossly normal, normal oropharynx - Neck Neck: no lymphadenopathy Thyroid: bilateral: normal size - Respiratory Respiratory: bilateral: CTA - Cardiovascular Rhythm: regular Heart sounds: normal: S1, S2 - Gastrointestinal General gastrointestinal: normal bowel sounds, soft - Integumentary Integumentary: normal - Neurologic Intermittent resting tremor right hand During my evaluation, laying in bed, strength in upper and lower extremities was normal. Reflexes also normal. Gait not tested. Affect slightly slow but overall appropriate. Followed simple commands appropriately. Memory and recall was diminished. Neurologic: CNII-XII intact - Musculoskeletal Musculoskeletal: generalized weakness, strength equal bilaterally - Psychiatric Oriented to self and place. Was not able to state which month. Memory and recall was diminished Results CBC & Chem 7: 04/28/20 05:29 04/28/20 05:29 Labs: Abnormal Lab Results - Last 24 Hours (Table) 04/28/20 Range/Units 05:29 Carbon Dioxide 19.3 L (21.6-31.8) mmol/L Anion Gap 14.70 H (4.00-12.00) mmol/L BUN/Creatinine Ratio 23.33 H (12.00-20.00) Ratio Comments: CT angiogram head report reviewed Chest x-ray: report reviewed CT scan - abdomen: report reviewed CT scan - chest: report reviewed CT scan - pelvis: report reviewed MRI - head: report reviewed Assessment and Plan (1) Leukoencephalopathy Narrative/Plan: The patient is presenting with multiple complains as noted in the HPI. These appear to indicate progressive neurologic changes. MRI reported extensive white matter changes suggestive of leukoencephalopathy involving the brain and spinal cord. Consult was placed because of concern for malignant involvement Case was discussed in detail with the admitting service, and neurology. The MRI appearance is not suggestive of malignant involvement at all. Typically metastatic malignancy, or primary brain malignancy including SOFTWARE DEVELOPER INTERN lymphomas would present as discrete lesions, not extensive white matter changes. Therefore, suspicion for malignant involvement is clinically quite low. Neurology were in agreement with the same. They are considering lumbar puncture for further workup. In that case, it was suggested that flow cytometry for lymphocytes in addition to conventional cytology should be added for completion of workup. Paraneoplastic phenomenon is a possibility. However, the patient has already had a CT of the chest abdomen and pelvis showing no evidence of malignancy. Labs are also unrevealing. Therefore at this time, no further oncology workup is recommended. Await results of completion of neurology workup. Current Visit: Yes Status: Acute Code(s): G93.49 - OTHER ENCEPHALOPATHY SNOMED Code(s): 86268970 Plan: Defer to the admitting service for management of other medical problems
--- NOTE | 2020-04-28 15:09 | P.PN ---
Subjective Progress Note Date: 04/28/20 Patient was seen for a follow-up. Patient was seen in neurologic consultation by Dr. Edmond Beatty on 04/25/2020. Please refer to his note for details. Patient has history of hypertension, admitted for fatigue. Patient was complaining of thoracic pain, and pain in the shoulders and in the cervical region. Patient was having tremor of the right upper extremity and frequent falls. She has been having shuffling gait. Patient's mentation has been declining for the last 1-2 years, misplacing things. Patient has been having problem with control of urine and sometimes has incontinence. Patient sometimes would urinate on the towel. No bowel incontinence. No visual or auditory hallucination. No fever. When I came to see the patient, patient states "you forgot me". I asked if patient has ever seen me, states that she saw me 2 days ago. Patient is pleasantly confused. Denies any headache. Denies any numbness or tingling. Patient states she never smoked, does not drink alcohol. CTA of head and neck showed diminutive left anterior cerebral artery. This could be related to hemodynamic stenosis. No intracranial aneurysm. MRI of the brain and cervical spine revealed diffuse cerebral confluent symmetric FLAIR hyperintense signal are predominantly of the periventricular and subcortical white matter. There is mild deep white matter T2 flair hyperintense signal. There is also diffuse T2 hyperintense signal of the central canal of the entire visualized cervical and thoracic spinal cord, which may represent white matter involvement versus syrinx. This appearance is seen with leuk oencephalopathy with brainstem and spinal cord involvement, however patient's age makes the diagnosis is unlikely. Additional causes of control and diffuse cerebral versus periventricular predominant leukoencephalopathy should be explored in this patient. EEG is reportedly normal. Patient's blood test shows normal WBC, PT/PTT ESR is 41, lupus anticoagulants negative, hemoglobin A1c 6.0, hepatic panel normal. Total cholesterol 217, LDL 153, HDL 34, triglycerides 150. B12 608, TSH is normal PTH 50.9. THERESE negative, Sjogren's antibodies negative, hepatitis B, hepatitis C and HIV, HTLV-1 and 2 antibodies negative. Patient states she has 4 brothers and 6 total sisters including her. One of her sister, 4 years older to her has been diagnosed with Alzheimer's dementia. No other family members with dementia or any genetic condition. Objective - Vital Signs Vital signs: Vital Signs Temp 97.9 F 04/28/20 05:00 Pulse 86 04/28/20 05:00 Resp 14 04/28/20 05:00 BP 133/82 04/28/20 05:00 Pulse Ox 98 04/28/20 05:00 Intake & Output 04/27/20 04/28/20 04/28/20 18:59 06:59 18:59 Intake Total 240 960 Output Total 200 Balance 40 960 Intake: Oral 240 960 Output: Urine 200 Other: Voiding Method Bedside Commode Bedside Commode Bedside Commode # Voids 5 1 # Bowel Movements 1 2 - Exam Patient is an elderly female very pleasant, in no acute distress. Patient knows her name, although would not tell me her age, states is "secret". Patient thinks that she is in [place]. Patient states current president is Tanmay Bose, and then stated is Tanmay [place]. Patient has bilaterally positive palmomental reflex, positive visuospatial apraxia. Her speech and language functions are normal. On cranial nerve examination pupils are round and reacting to light. Visual bauman are full, extraocular muscles are intact. Face is symmetric, tongue protrudes to the midline. Palatal elevation and sensation normal. Hearing and shoulder shrug normal. On muscle strength testing there is no pronator drift and the strength is normal in arms and legs distally and proximally. Reflexes are diminished, but has bilateral Babinski. Sensory touch is equal. No ataxia for gemfbn-og-rshh. Patient has mild to moderate tremors at rest noted on the right side. Tone is normal in both upper limbs. Patient does appear slightly bradykinetic. Gait was deferred. 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 Possible some inborn errors of metabolism, although onset of clinical symptoms is very late, which is quite unusual. * Dementia, due to above. 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 Plan: * I discussed with patient about lumbar puncture for further evaluation of her memory loss, and abnormalities noted on the MRI of brain. Patient declined at first, but later stated that she will speak to her son Praneeth. She wanted to give her time and will let us know tomorrow, if she consents for LP. * Appreciate hematology input. The brain MRI does not have feature of lymphoma, especially with lack of enhancement. CT of the chest abdomen and pelvis does not reveal any evidence of neoplastic process. * Patient's lipids are poorly controlled with LDL 153. We will increase Lipitor to 40 mg daily. * We will check RPR. MTHFR, B1, MMA and folate levels pending.
[2020-04-28 16:11] LABS: HCV Qualitative Result Not detected (Not detected); HCV Quant Log <1.08 (<1.08); HCV Quantitative Result <12 IU/mL (<12)
[2020-04-28] MEDS: ATORVASTATIN 10 MG TAB PO SCH (20:59)
[2020-04-28] MEDS: DONEPEZIL 10 MG TAB PO SCH (20:59)
[2020-04-29 05:24] LABS: Basophils % (A) 1 %; Eosinophils # (A) 0.1 k/uL (0-0.7); Eosinophils % (A) 2 %; HCT 38.6 % (34.0-46.0); HGB 12.7 gm/dL (11.4-16.0); Lymphocytes # (A) 1.4 k/uL (1.0-4.8); Lymphocytes % (A) 30 %; MCH 28.6 pg (25.0-35.0); MCHC 32.9 g/dL (31.0-37.0); Monocytes # (A) 0.2 k/uL (0-1.0); Monocytes % (A) 4 %; Neutrophils # (A) 2.8 k/uL (1.3-7.7); Neutrophils % (A) 62 %; Platelet Count 314 k/uL (150-450); RBC 4.44 m/uL (3.80-5.40); RDW 13.6 % (11.5-15.5); WBC 4.6 k/uL (3.8-10.6)
[2020-04-29] MEDS: HEPARIN SODIUM,PORCINE 5,000 UNIT/ML 1 ML VIAL SQ SCH (09:07)
[2020-04-29] MEDS: ASPIRIN 325 MG TAB PO SCH (09:07)
[2020-04-29] MEDS: PANTOPRAZOLE 40 MG TABLET PO SCH (09:08)
[2020-04-29 09:30] LABS: African American GFR (CKD) 110.1 (60.0-200.0); Anion Gap 9.9 mmol/L (4.00-12.00); Calcium 9.3 mg/dL (8.7-10.3); Carbon Dioxide 25.1 mmol/L (21.6-31.8); Potassium 3.8 mmol/L (3.5-5.5)
[2020-04-29 13:24] VITALS: BP 134/68; PULSE 68; RESP 16; TEMP 98
--- NOTE | 2020-04-29 15:24 | P.PN ---
Subjective Progress Note Date: 04/29/20 04/29/2020: Patient laying comfortably in the bed. Offers no complaints. Denies headache. Patient still declines lumbar puncture. Wants me to talk to her son. 04/28/2020: Patient was seen for a follow-up. Patient was seen in neurologic consultation by Dr. Edmond Beatty on 04/25/2020. Please refer to his note for details. Patient has history of hypertension, admitted for fatigue. Patient was complaining of thoracic pain, and pain in the shoulders and in the cervical region. Patient was having tremor of the right upper extremity and frequent falls. She has been having shuffling gait. Patient's mentation has been declining for the last 1-2 years, misplacing things. Patient has been having p roblem with control of urine and sometimes has incontinence. Patient sometimes would urinate on the towel. No bowel incontinence. No visual or auditory hallucination. No fever. When I came to see the patient, patient states "you forgot me". I asked if patient has ever seen me, states that she saw me 2 days ago. Patient is pleasantly confused. Denies any headache. Denies any numbness or tingling. Patient states she never smoked, does not drink alcohol. CTA of head and neck showed diminutive left anterior cerebral artery. This could be related to hemodynamic stenosis. No intracranial aneurysm. MRI of the brain and cervical spine revealed diffuse cerebral confluent symmetric FLAIR hyperintense signal are predominantly of the periventricular and subcortical white matter. There is mild deep white matter T2 flair hyperintense signal. There is also diffuse T2 hyperintense signal of the central canal of the entire visualized cervical and thoracic spinal cord, which may represent white matter involvement versus syrinx. This appearance is seen with leukoencephalopathy with brainstem and spinal cord involvement, however patient's age makes the diagnosis is unlikely. Additional causes of control and diffuse cerebral versus periventricular predominant leukoencephalopathy should be explored in this patient. EEG is reportedly normal. Patient's blood test shows normal WBC, PT/PTT ESR is 41, lupus anticoagulants negative, hemoglobin A1c 6.0, hepatic panel normal. Total cholesterol 217, LDL 153, HDL 34, triglycerides 150. B12 608, TSH is normal PTH 50.9. THERESE negative, Sjogren's antibodies negative, hepatitis B, hepatitis C and HIV, HTLV-1 and 2 antibodies negative. Patient states she has 4 brothers and 6 total sisters including her. One of her sister, 4 years older to her has been diagnosed with Alzheimer's dementia. No other family members with dementia or any genetic condition. Objective - Vital Signs Vital signs: Vital Signs Temp 97.9 F 04/29/20 05:00 Pulse 62 04/29/20 05:00 Resp 18 04/29/20 05:00 BP 144/78 04/29/20 05:00 Pulse Ox 97 04/29/20 05:00 Intake & Output 04/28/20 04/29/20 04/29/20 18:59 06:59 18:59 Intake Total 840 325 Balance 840 325 Intake: Oral 840 325 Other: Voiding Method Bedside Commode Toilet # Voids 2 2 - Exam Patient is an elderly female very pleasant, in no acute distress. Speech and language functions are normal. Detail cognitive function testing deferred. Muscle strength is normal. Patient able to get out of bed without any assistance although slightly slow. Patient's walk with fairly normal stride although with decreased arm swing bilaterally and some Parkinsonian tremor of the right hand. 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 Possible some inborn errors of metabolism, although onset of clinical symptoms is very late, which is quite unusual. * Dementia, due to above. 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 Plan: * Patient still declining lumbar puncture. I spoke to patient's son on the phone. He spoke to the patient and they mutually decided to have lumbar puncture performed as an outpatient. * Patient will be discharged today, continue Aricept 10 mg daily. Patient needs to follow-up with a neurologist for further management. May consider evaluation at the [facility] for a second opinion, to workup for genetic cause of leukodystrophy. * Appreciate hematology input. The brain MRI does not have feature of lymphoma, especially with lack of enhancement. CT of the chest abdomen and pelvis does not reveal any evidence of neoplastic process. * Patient's lipids are poorly controlled with LDL 153. Continue Lipitor to 40 mg daily. * Await RPR. MTHFR came back negative. RBC Folate 619, normal. B1, MMA still pending. * Rest of the blood test can be followed up with PCP/neurologist as an outpatient. * Spoke to patient's son in detail.
[2020-04-29] MEDS ORDERED: ATORVASTATIN 40 MG TAB PO SCH (21:00)
[2020-05-01 08:00] LABS: Methylmalonic Acid 0.1 umol/L (<0.40)
--- NOTE | 2020-05-06 10:12 | CDI ---
Documentation Clarification Form Date: 05/06/20 From: Mia Rose Phone: If you have a question about this query, please contact Eli Tejada, [employer] at [phone] between 8am and 5pm. Admit Date: 04/25/20 Discharge Date: 04/29/20 Patient Name: ZULLY Otoole Visit Number: [id number] ATTENTION: The Clinical Documentation Specialists (CDI) and [facility] Coding Staff appreciate your assistance in clarifying documentation. Please respond to the clarification below the line at the bottom and electronically sign. The CDI & [facility] Coding staff will review the response and follow-up if needed. Please note: Queries are made part of the Legal Health Record. If you have any questions, please contact the author of this message via ITS. Dear Dr. Dc Andrea, Diffuse leukoencephalopathy is documented in both consults and multiple progress notes. Patient history/risk factors: never smoked, Parkinson's, dementia, hypercholesterolemia, hypertensive heart disease without heart failure, urinary incontinence, hyperlipidemia, osteoarthritis, bradycardia, chronic thoracic pain and cervicalgia, repeated falls Clinical Indicators: altered mentation, inability to ambulate, headache, back pain, fatigued, CXR: There is some mild interstitial infiltrate in the left midlung field.Normal heart. Labs: COVID 04/26-Detected ABGs: pH-7.39, pCO2-37, pO2-91, HCO3-23, CO2-24 Viral Panel: COVID-positive; Treponema pallidum Ul-wss-zfxwivlc; R-chlu-qonuacen; HEP B core knhwm-red-mnltubvq, Hep B core SuC-zpj-dcaprufk; Hep C PoZ-dbm-vlhtlym; HCV RNA Qual-not detected; Hepatitis C Genotype-cancelled; HIV-1 tipkguugp-vfs-mpvgjzj; HIV p24 zotlkjfm-pbp-iscnnjbv; HIV Ag/Ab interpret- none; HIV-2 cxwiicvp-egn-buqoikso; HIV-2 rsedsjol-mae-pgkljmyb; HIV P24 nncbpyeh-feq-lzkkjguk; HTLV I/II Ab-negative Vital Signs: T-97, P-64/56, R-16/12, BP-142/67, O2 sat-99 Treatment: IV saline, no antibiotics In order to capture the severity of condition, please clarify if the above treatment/clinical indicators signify: COVID-19 confirmed and present on admission and underlying reason for leukoencephalopathy-this is not the correct dx Other, please specify Unable to determine-this is the correct dx at this time MTDD
--- NOTE | 2020-05-18 20:38 | P.DS ---
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 Do you want consulting provider notified?: Yes Consult Physician Routine Consulting Provider: Sarah Alfonso Consult Reason/Comments: leuko encephalopathy? Do you want consulting provider notified?: Yes Primary care physician: Dc Andrea - Discharge Diagnosis(es) (1) Mild cognitive impairment with memory loss Status: Acute (2) Immobility Status: Acute (3) Altered mental status Status: Acute (4) COVID-19 Status: Acute Hospital Course: This is discharge summary on a 65-year-old female essentially admitted for altered mental status. Neurology was consulted and she has an element of leukoencephalopathy. The patient has significant changes on her MRI and CT scan. Spinal tap will be done as an outpatient and she is stabilized for discharge. She has been cleared by neurology and will follow up in about a week. Unfortunately, after discharge she was diagnosed with Covid positivity. Patient Condition at Discharge: Stable Plan - Discharge Summary Discharge Rx Participant: No New Discharge Prescriptions: New Atorvastatin [Lipitor] 10 mg PO HS #30 tab Continue Acetaminophen-Codeine 300-30mg [Tylenol w/codeine #3] 1 - 2 tab PO Q4-6H PRN PRN Reason: Pain Aspirin EC [Ecotrin] 325 mg PO DAILY Donepezil [Aricept] 10 mg PO HS Discharge Medication List Acetaminophen-Codeine 300-30mg [Tylenol w/codeine #3] 1 - 2 tab PO Q4-6H PRN 04/24/20 [History] Aspirin EC [Ecotrin] 325 mg PO DAILY 04/24/20 [History] Donepezil [Aricept] 10 mg PO HS 04/24/20 [History] Atorvastatin [Lipitor] 10 mg PO HS #30 tab 04/29/20 [Rx] Follow up Appointment(s)/Referral(s): Dc Andrea MD [Primary Care Provider] - 05/06/20 2:[address] [facility], [NON-STAFF] - 1 Week Gaby Tapia MD [Medical Doctor] - 1 Week (Neurologist-- Patient's family to call and make an appointment - office closed at time of discharge) Patient Instructions/Handouts: Atorvastatin (By mouth) Discharge Disposition: HOME WITH HOME HEALTH SERVICES
== END 2020-04-29 19:35 | disposition home health service (06) | DRG 70 ==
LOC: EC 20:49 → 6NMEDSUR 23:12 → OBSVTOIN 04-25 15:31 → 6NMEDSUR 04-27 17:46
PROVIDERS: ADMIT Family Medicine; ATTEND Family Medicine
DX: G93.49 Other encephalopathy (principal); U07.1 COVID-19; G20 Parkinson's disease; F02.80 Dementia in other diseases classified elsewhere, unspecified severity, without behavioral disturbance, psychotic disturbance, mood disturbance, and anxiety; E78.00 Pure hypercholesterolemia, unspecified; F06.8 Other specified mental disorders due to known physiological condition; I11.9 Hypertensive heart disease without heart failure; R32 Unspecified urinary incontinence; E78.5 Hyperlipidemia, unspecified; M19.90 Unspecified osteoarthritis, unspecified site; R00.1 Bradycardia, unspecified; R94.31 Abnormal electrocardiogram [ECG] [EKG]; G89.29 Other chronic pain; M54.6 Pain in thoracic spine; M54.2 Cervicalgia; R29.6 Repeated falls; Z79.82 Long term (current) use of aspirin; Z79.899 Other long term (current) drug therapy; Z87.442 Personal history of urinary calculi; Z90.49 Acquired absence of other specified parts of digestive tract; Z87.19 Personal history of other diseases of the digestive system; Z87.39 Personal history of other diseases of the musculoskeletal system and connective tissue; Z98.890 Other specified postprocedural states; Z82.0 Family history of epilepsy and other diseases of the nervous system
CPT/HCPCS: 36415; 36600; 70450; 70496; 70498; 70553; 71046; 71275; 72040; 72128; 72132; 72156; 74177; 80048; 80053; 80061; 80306; 80320; 80329; 81001; 81291; 82140; 82550; 82607; 82747; 82805; 83036; 83520; 83921; 83970; 84425; 84443; 84484; 85025; 85379; 85610; 85613; 85652; 85730; 86038; 86140; 86235; 86704; 86705; 86780; 86790; 86803; 87324; 87390; 87522; 93005; 95816; 96361; 96374; 99285

== ENCOUNTER → 2020-04-24 | Outpatient (CLI) | payer MEDICARE ==
--- NOTE | 2020-04-24 15:47 | XR ---
EXAMINATION TYPE: XR cervical spine 3 views DATE OF EXAM: 04/24/2020 Comparison: None Clinical History: 65-year-old female M99.01 cervical dysfunction Findings: Hypertrophic facet and uncovertebral joint arthropathy mid to lower cervical spine. No predental spac e widening or prevertebral soft tissue swelling. Alignment is maintained. Limited odontoid view shows no gross abnormality. Impression: Hypertrophic facet and uncovertebral joint arthropathy mid to lower cervical spine. No prevertebral s oft tissue swelling or malalignment.
== END | disposition home or self-care (01) ==
LOC: RADXRMAIN 14:25
PROVIDERS: ATTEND Family Medicine
DX: M47.812 Spondylosis without myelopathy or radiculopathy, cervical region (principal)
CPT/HCPCS: 72040

== ENCOUNTER 2020-06-10 09:41 | Day surgery (SDC) | payer MEDICARE ==
[2020-06-09 11:31] VITALS: BMI 25.8
[~2020-06-10 09:41] MED LIST: LACTATED RINGERS 1,000 ML IV SCH
[2020-06-10 10:20] VITALS: RESP 16; TEMP 98.6
--- NOTE | 2020-06-10 10:46 | P.PCN ---
Date of Procedure: 06/10/20 Description of Procedure: Procedure: Lumbar Puncture . Preoperative Diagnoses: rule out M.S Postoperative Diagnosis: rule out M.S Anesthesia: Local with 1% lidocaine 5 ML's Condition: stable. Complications: none. Description of the procedure: Patient was consented in the preoperative area we discussed the risks benefits and alternatives to the procedure. The patient was Brought the patient into the procedure room and she was placed in the left lateral decubitus position.. The back was cleansed with iodine 3. Palpation of the iliac crest bilaterally provided by Chace guided intervention. The L3-L4 interspace was palpated. At that point lidocaine 1% was used to anesthetize the skin, total of 5 mL was used. A 22 gauge spinal needle was advanced until spinal fluid was aspirated through the needle and a three - way stop cock. Opening pressure was low as CSF was 12. . CSF was obtained and sent off to laboratory for examination, it was difficult to obtain a significant amount of spinal fluid. A total of 6 mL were sent to the laboratory. There was no free flow CSF, CSF was not able to be aspirated either. Multiple positions were tried.. Band-Aid was placed after the procedure the patient was instructed to lay flat for the next few hours. The patient was discharged from the PACU in stable condition.
[2020-06-10 11:35] VITALS: BP 133/89; PULSE 58
[2020-06-10 13:11] LABS: Appearance,CSF Clear; CSF Tube Number 1
[2020-06-10 13:23] LABS: Nucleated Cells, CSF 7 u/L (0-5); Red Blood Cell,CSF 81 u/L (0-10)
[2020-06-10 13:41] LABS: Diff, Total Cells Cnt, CSF 100; Mononuclear WBC,CSF 98 %; Polynuclear WBC,CSF 2 %
[2020-06-10 13:44] LABS: Glucose,CSF 59 mg/dL (40-70); Total Protein,CSF 63 mg/dL (12-60)
== END 2020-06-10 12:21 | disposition home or self-care (01) ==
LOC: ORPAIN 09:41
PROVIDERS: ATTEND Hospitalist
DX: E75.29 Other sphingolipidosis (principal); R83.6 Abnormal cytological findings in cerebrospinal fluid; F03.90 Unspecified dementia, unspecified severity, without behavioral disturbance, psychotic disturbance, mood disturbance, and anxiety
CPT/HCPCS: 62270; 82945; 84157; 87070; 87205; 88108; 89050

== ENCOUNTER → 2020-06-17 | Outpatient (CLI) | payer MEDICARE ==
[2020-06-18 11:35] LABS: Ceruloplasmin 23.2 mg/dL (20.0-60.0)
[2020-06-18 13:44] LABS: Zinc, Serum 78 ug/dL (60-130)
[2020-06-19 02:16] LABS: ACTH 26.1 pg/mL (0.00-45.99)
== END | disposition home or self-care (01) ==
LOC: LABWHC1 10:26
PROVIDERS: ATTEND Psychiatry & Neurology Neurology
DX: E75.29 Other sphingolipidosis (principal); F03.90 Unspecified dementia, unspecified severity, without behavioral disturbance, psychotic disturbance, mood disturbance, and anxiety
CPT/HCPCS: 36415; 82024; 82175; 82390; 82525; 82550; 82570; 82607; 83655; 83825; 84207; 84630

== ENCOUNTER 2021-05-10 16:20 | Emergency (ER) | payer MEDICARE, OTHER ==
[2021-05-10 18:09] VITALS: TEMP 98.1
[2021-05-10] MEDS ORDERED: SODIUM CHLORIDE 0.9% 1,000 ML IV STA (19:05)
[2021-05-10] MEDS ORDERED: LORazepam 2 MG/ML INJ IV STA (19:08)
--- NOTE | 2021-05-10 19:57 | CT ---
EXAMINATION TYPE: CT brain wo con DATE OF EXAM: 05/10/2021 COMPARISON: 04/24/2020 HISTORY: tremors, parkinsons CT DLP: 1099.4 mGycm Automated exposure control for dose reduction was used. There is extensive hypodensity in the white matter. There is no mass effect nor midline shift. There is no evidence of intracranial hemorrhage. Calvarium is intact. IMPRESSION: Extensive white matter disease throughout the brain not changed compared to old exam. No acute intrac ranial abnormality.
[2021-05-10 20:21] LABS: Basophils % (A) 1 %; Eosinophils # (A) 0.1 k/uL (0-0.7); Eosinophils % (A) 1 %; HCT 39.9 % (34.0-46.0); HGB 13.7 gm/dL (11.4-16.0); Lymphocytes # (A) 2.1 k/uL (1.0-4.8); Lymphocytes % (A) 38 %; MCH 30.7 pg (25.0-35.0); MCHC 34.4 g/dL (31.0-37.0); MCV 89.3 fL (80.0-100.0); Mean Platelet Volume 7.8; Monocytes # (A) 0.3 k/uL (0-1.0); Monocytes % (A) 5 %; Neutrophils # (A) 2.9 k/uL (1.3-7.7); Neutrophils % (A) 52 %; Platelet Count 242 k/uL (150-450); RBC 4.47 m/uL (3.80-5.40); RDW 12.5 % (11.5-15.5); WBC 5.5 k/uL (3.8-10.6)
[2021-05-10 20:30] LABS: ALT 15 U/L (4-34); AST 30 U/L (14-36); African American GFR (CKD) >90 (>60 ml/min/1.73 sqM); Albumin 4.3 g/dL (3.5-5.0); Alkaline Phosphatase 82 U/L (38-126); Anion Gap 9 mmol/L; Blood Urea Nitrogen 24 mg/dL (7-17); Calcium 9.9 mg/dL (8.4-10.2); Carbon Dioxide 25 mmol/L (22-30); Chloride 105 mmol/L (98-107); Glucose 91 mg/dL (74-99); Non-African American GFR(CKD) >90 (>60 ml/min/1.73 sqM); Potassium 4.3 mmol/L (3.5-5.1); Sodium 139 mmol/L (137-145); Total Bilirubin 1.2 mg/dL (0.2-1.3); Total Protein 7.6 g/dL (6.3-8.2)
--- NOTE | 2021-05-10 21:56 | ED ---
Back Pain HPI - General Chief Complaint: Back Pain/Injury Stated Complaint: PARKINSON/DEMENTIA Time Seen by Provider: 05/10/21 18:53 Source: patient, RN notes reviewed Limitations: no limitations - History of Present Illness Initial Comments: Patient is a 66-year-old female that presents to the emergency department complaining of generalized overall back pain. She also notes that she's had some new onset of tremors approximate 4 days ago. Patient denied any injury or trauma. Patient states she thinks she might have Parkinson's that undiagnosed. Patient notes she does not follow-up with her primary care very frequently. Patient was otherwise a well-appearing 66-year-old female in no apparent distress or pain. Patient is able to ambulate in room. Patient is alert and oriented 4. She denied any chest pain shortness of breath headache nausea vomiting diarrhea constipation fever fatigue chills. - Related Data Home Medications Medication Instructions Recorded Confirmed Acetaminophen-Codeine 300-30mg 1 tab PO Q6H PRN 04/24/20 06/10/20 [Tylenol w/codeine #3] Donepezil [Aricept] 10 mg PO HS 04/24/20 06/10/20 Previous Rx's Medication Instructions Recorded Atorvastatin [Lipitor] 10 mg PO HS #30 tab 04/29/20 Allergies Allergy/AdvReac Type Severity Reaction Status Date / Time No Known Allergies Allergy Verified 05/10/21 18:06 Review of Systems ROS Statement: Those systems with pertinent positive or pertinent negative responses have been documented in the HPI. ROS Other: All systems not noted in ROS Statement are negative. Past Medical History Past Medical History: Hyperlipidemia, Hypertension, Memory Impairment Additional Past Medical History / Comment(s): Hx kidney stones 01/2020. Some muscle pain, weakness. Pain in Rt shoulder blade/back. History of Any Multi-Drug Resistant Organisms: None Reported Past Surgical History: Cholecystectomy, Orthopedic Surgery Additional Past Surgical History / Comment(s): Rt shoulder surgery. Kidney stone proc Past Anesthesia/Blood Transfusion Reactions: No Reported Reaction Past Psychological History: No Psychological Hx Reported Smoking Status: Never smoker Past Alcohol Use History: None Reported Past Drug Use History: None Reported - Past Family History Mother Family Medical History: Unable to Obtain Father History Unknown: Yes Additional Family Medical History / Comment(s): Father as a younger man but pt does not recall cause. General Exam Limitations: no limitations General appearance: alert, in no apparent distress Head exam: Present: atraumatic, normocephalic, normal inspection Eye exam: Present: normal appearance, PERRL, EOMI. Absent: scleral icterus, conjunctival injection, periorbital swelling ENT exam: Present: normal exam, mucous membranes moist Neck exam: Present: normal inspection Respiratory exam: Present: normal lung sounds bilaterally. Absent: respiratory distress, wheezes, rales, rhonchi, stridor Cardiovascular Exam: Present: regular rate, normal rhythm, normal heart sounds. Absent: systolic murmur, diastolic murmur, rubs, gallop, clicks GI/Abdominal exam: Present: soft, normal bowel sounds. Absent: distended, tenderness, guarding, rebound, rigid Extremities exam: Present: normal inspection, full ROM, normal capillary refill. Absent: tenderness, pedal edema, joint swelling, calf tenderness Neurological exam: Present: alert, oriented X3 Expanded Patient oriented to: Present: person, place, time Speech: Present: fluid speech Cranial nerves: EOM's Intact: Normal, Tongue Deviation: Normal, Nystagmus: Normal, Facial Sensation: Normal Cerebellar function: Finger to Nose: Normal, Heel to Alva: Normal Sensory exam: Upper Extremity Light Touch: Normal, Lower Extremity Light Touch: Normal Motor strength exam: RUE: 5, LUE: 5, RLE: 5, LLE: 5 Psychiatric exam: Present: normal affect, normal mood Skin exam: Present: warm, dry, intact, normal color. Absent: rash Course Vital Signs 05/10/21 18:06 Temperature 98.1 F Pulse Rate 85 Respiratory 20 Rate Blood Pressure 151/80 O2 Sat by Pulse 100 Oximetry Medical Decision Making - Medical Decision Making 86-year-old female complaining of back pain and new onset tremors. Labs, CT of the brain 1 mg Ativan ordered. Labs unremarkable. CT of the brain negative for any acute process. Case discussed with Dr. Avina, patient can discharge home with follow-up to a neurologist. - Lab Data Result diagrams: 05/10/21 20:10 05/10/21 20:10 Lab Results 05/10/21 05/10/21 Range/Units 20:10 20:10 WBC 5.5 (3.8-10.6) k/uL RBC 4.47 (3.80-5.40) m/uL Hgb 13.7 (11.4-16.0) gm/dL Hct 39.9 (34.0-46.0) % MCV 89.3 (80.0-100.0) fL MCH 30.7 (25.0-35.0) pg MCHC 34.4 (31.0-37.0) g/dL RDW 12.5 (11.5-15.5) % Plt Count 242 (150-450) k/uL MPV 7.8 Neutrophils % 52 % Lymphocytes % 38 % Monocytes % 5 % Eosinophils % 1 % Basophils % 1 % Neutrophils # 2.9 (1.3-7.7) k/uL Lymphocytes # 2.1 (1.0-4.8) k/uL Monocytes # 0.3 (0-1.0) k/uL Eosinophils # 0.1 (0-0.7) k/uL Basophils # 0.0 (0-0.2) k/uL Sodium 139 (137-145) mmol/L Potassium 4.3 (3.5-5.1) mmol/L Chloride 105 (98-107) mmol/L Carbon Dioxide 25 (22-30) mmol/L Anion Gap 9 mmol/L BUN 24 H (7-17) mg/dL Creatinine 0.68 (0.52-1.04) mg/dL Est GFR (CKD-EPI)AfAm >90 (>60 ml/min/1.73 sqM) Est GFR (CKD-EPI)NonAf >90 (>60 ml/min/1.73 sqM) Glucose 91 (74-99) mg/dL Calcium 9.9 (8.4-10.2) mg/dL Total Bilirubin 1.2 (0.2-1.3) mg/dL AST 30 (14-36) U/L ALT 15 (4-34) U/L Alkaline Phosphatase 82 (38-126) U/L Total Protein 7.6 (6.3-8.2) g/dL Albumin 4.3 (3.5-5.0) g/dL - Radiology Data Radiology results: report reviewed, image reviewed CT of the brain: Extensive white matter disease throughout the brain not changed compared to old exam. No acute intracranial abnormality. Disposition Clinical Impression: Intention tremor Disposition: HOME SELF-CARE Condition: Stable Instructions (If sedation given, give patient instructions): Acute Low Back Pain (ED) Additional Instructions: Please return to the Emergency Department if symptoms worsen or any other concerns. Follow-up with primary care 1-2 days. Follow-up with neurologist as soon as possible. Is patient prescribed a controlled substance at d/c from ED?: No Referrals: Dc Andrea MD [Primary Care Provider] - 1-2 days Gaby Tapia MD [Medical Doctor] - 1-2 days Time of Disposition: 21:56
--- NOTE | 2021-05-10 22:40 | XR ---
EXAMINATION TYPE: XR lumbar spine 2 or 3V DATE OF EXAM: 05/10/2021 COMPARISON: NONE HISTORY: Back pain TECHNIQUE: 3 views FINDINGS: Lumbar vertebra have normal alignment. Posterior elements are intact. There is no compressi on fracture. Sacroiliac joints are intact. Bony structures are intact. IMPRESSION: Negative lumbar spine exam. No fracture.
[2021-05-10 23:28] VITALS: RESP 18
[2021-05-10 23:33] VITALS: BP 128/72; PULSE 83
== END 2021-05-10 23:32 | disposition home or self-care (01) ==
LOC: EC 16:20
DX: G25.2 Other specified forms of tremor (principal); I10 Essential (primary) hypertension; E78.5 Hyperlipidemia, unspecified; Z79.899 Other long term (current) drug therapy
CPT/HCPCS: 36415; 80053; 85025; 72100; 70450; 99284; 96374; J2060